=== PATIENT | male | born 1930 | race Caucasian/White ===

== ENCOUNTER → 2017-08-13 | Outpatient (CLI) | payer OTHER | LOC: BMCIMAGING 14:25 | PROVIDERS: ATTEND Family Medicine | DX: R60.9 Edema, unspecified (principal) ==

== ENCOUNTER 2017-09-23 17:25 | Inpatient (IN) | payer OTHER ==
--- NOTE | 2017-09-23 17:53 | EDPHY ---
HPI/HX/ROS/PE/MDM Narrative: CHIEF COMPLAINT: Bilateral leg edema HPI: This patient is an 87 year old male with history of congestive heart failure and dementia arriving at he request of his patient access director, Dr. Alegre, for evaluation of worsening lower extremity edema. Two months ago, the patient's daughter noted worsening leg swelling and discovered the patient was not taking his prescribed diuretic medications. He has had several appointments at the medical center and followed up with cardiology, but has not done well with his current outpatient management. A recent echocardiogram in August showed normal LV function. The patient presents today for admission for management of symptoms. REVIEW OF SYSTEMS: Aside from elements discussed in the HPI, a comprehensive 10-point review of systems was reviewed and is negative. PMH: Congestive heart failure, dementia, BPH, asthma SOCIAL HISTORY: Family at bedside. Lives in [place]. Retired. . Nonsmoker. PHYSICAL EXAM: General:Patient is alert, in no acute distress. ENT:Eyes are normal to inspection. ENT inspection normal. Neck: Normal inspection. Full range of motion. Respiratory:No respiratory distress. Breath sounds normal bilaterally. Cardiovascular: Regular rate and rhythm. Strong peripheral pulses. Normal cap refill. Abdomen:The abdomen is nontender to palpation. There are no peritoneal signs. There are normal bowel sounds. Back: Normal to inspection. No tenderness to palpation. Skin: Normal color. No rash. Warm and dry. Extremities: 3+ bilateral lower extremity edema with large amount of skin sloughing and flaking, mild weeping. Full range of motion. Neuro: Oriented x3. Normal motor function. Normal sensory function. ED Course: 87 y/o male with history of CHF presents for admission and diuresis at the request of his patient access director, Dr. Alegre. Exam reveals 3+ bilateral lower extremity edema with large amount of skin sloughing and flaking, mild weeping. Plan for EKG, chest x-ray, labs including CBC, BMP, troponin, BMP, liver. EKG was ordered and interpreted by myself. Please see [employer] system for official reading. Troponin and BNP negative. Chest x-ray shows cardiomegaly, no pneumonia. 19:[address] Cordero, hospitalist. He accepts admission for right heart failure and bilateral lower extremity edema. Plan to administer 20mg IV Lasix. MDM: This patient presents with longstanding, quite significant BLE edema, not responding to outpatient treatment and thought secondary to RH failure. His patient access director has requested admission for further workup and treatment. I see no signs of respiratory compromise, ACS, or DVT at this time. - Data Points Imaging: I viewed and interpreted images myself Laboratory Results: Laboratory Results 09/23/17 17:54 09/23/17 17:54 09/23/17 09/23/17 17:54 17:54 WBC 5.80 10^3/uL 10^3/uL (3.80-9.50) RBC 3.48 10^6/uL L 10^6/uL (4.40-6.38) Hgb 12.3 g/dL L g/dL (13.7-17.5) Hct 34.8 % L % (40.0-51.0) MCV 100.0 fL H fL (81.5-99.8) MCH 35.3 pg H pg (27.9-34.1) MCHC 35.3 g/dL g/dL (32.4-36.7) RDW 15.8 % H % (11.5-15.2) Plt Count 187 10^3/uL 10^3/uL (150-400) MPV 8.5 fL L fL (8.7-11.7) Neut % (Auto) 45.8 % % (39.3-74.2) Lymph % (Auto) 29.5 % % (15.0-45.0) [place] % (Auto) 15.0 % H % (4.5-13.0) Eos % (Auto) 8.6 % H % (0.6-7.6) Baso % (Auto) 0.9 % % (0.3-1.7) Nucleat RBC Rel Count 0.0 % % (0.0-0.2) Absolute Neuts (auto) 2.66 10^3/uL 10^3/uL (1.70-6.50) Absolute Lymphs (auto) 1.71 10^3/uL 10^3/uL (1.00-3.00) Absolute Monos (auto) 0.87 10^3/uL H 10^3/uL (0.30-0.80) Absolute Eos (auto) 0.50 10^3/uL H 10^3/uL (0.03-0.40) Absolute Basos (auto) 0.05 10^3/uL 10^3/uL (0.02-0.10) Absolute Nucleated RBC 0.00 10^3/uL 10^3/uL (0-0.01) Immature Gran % 0.2 % % (0.0-1.1) Immature Gran # 0.01 10^3/uL 10^3/uL (0.00-0.10) Sodium 142 mEq/L mEq/L (135-145) Potassium 5.2 mEq/L mEq/L (3.5-5.2) Chloride 105 mEq/L mEq/L (97-110) Carbon Dioxide 26 mEq/l mEq/l (22-31) Anion Gap 11 mEq/L mEq/L (8-16) BUN 32 mg/dL H mg/dL (7-23) Creatinine 0.8 mg/dL mg/dL (0.7-1.3) Estimated GFR > 60 Glucose 102 mg/dL H mg/dL (70-100) Calcium 9.4 mg/dL mg/dL (8.5-10.4) Total Bilirubin 0.4 mg/dL mg/dL (0.1-1.4) Conjugated Bilirubin 0.2 mg/dL mg/dL (0.0-0.5) Unconjugated Bilirubin 0.2 mg/dL mg/dL (0.0-1.1) AST 33 IU/L IU/L (17-59) ALT 44 IU/L IU/L (21-72) Alkaline Phosphatase 95 IU/L IU/L (38-126) Troponin I < 0.012 ng/mL ng/mL (0.000-0.034) NT-Pro-B Natriuret Pep 494 pg/mL H pg/mL (0-450) Total Protein 7.2 g/dL g/dL (6.3-8.2) Albumin 3.7 g/dL g/dL (3.5-5.0) Medications Given: Discontinued Medications Furosemide (Lasix Injection) 20 mg IVP EDNOW ONE Stop: 09/23/17 19:53 Last Admin: 09/23/17 20:03 Dose: Not Given General Time Seen by Provider: 09/23/17 17:46 Initial Vital Signs: Initial Vital Signs Temperature (C) 36.4 C 09/23/17 17:28 Heart Rate 74 09/23/17 17:28 Respiratory Rate 18 09/23/17 17:28 Blood Pressure 153/47 H 09/23/17 17:28 O2 Sat (%) 96 09/23/17 17:28 O2 Delivery Mode Nasal Cannula O2 (L/minute) 2 Allergies/Adverse Reactions: No Known Allergies Allergy (Unverified 09/23/17 17:27) Home Medications: Medication Instructions Recorded Folic Acid [Folic Acid 1 MG (*)] 1 mg PO DAILY 09/23/17 Furosemide [Lasix 20 MG (*)] 20 mg PO DAILY 09/23/17 Potassium Chloride [Klor-Con 10] 10 meq PO DAILY 09/23/17 Tamsulosin HCl [Flomax 0.4 MG (*)] 0.4 mg PO DAILY 09/23/17 Departure - Departure Disposition: [facility] Inpatient Acute Clinical Impression: RHF (right heart failure), Bilateral lower extremity edema Condition: Fair Report Scribed for: Thanh Greco Report Scribed by: Stephany Miranda Date of Report: 09/23/17 Time of Report: 17:48 Physician Review and Approval Statement: Portions of this note were transcribed by an ED scribe. I personally performed the history, physical exam, and medical decision making; and confirm the accuracy of the information in the transcribed note.
--- NOTE | 2017-09-23 17:59 | CPEKG ---
Heart Rate: 71 RR Interval: 845 P-R Interval: 184 QRSD Interval: 96 QT Interval: 400 QTC Interval: 435 P Brighton: 90 QRS Brighton: -54 T Wave [place]: 82 EKG Severity - ABNORMAL ECG - EKG Impression: SINUS RHYTHM EKG Impression: ATRIAL PREMATURE COMPLEX EKG Impression: LEFT ATRIAL ABNORMALITY EKG Impression: LEFT ANTERIOR FASCICULAR BLOCK EKG Impression: LEFT VENTRICULAR HYPERTROPHY Electronically Signed By: Calvin Guillaume 24-Sep-2017 12:37:57
[2017-09-23 18:23] LABS: PLATELET COUNT 187 10^3/uL (150-400)
[2017-09-23] MEDS ORDERED: FUROSEMIDE 20 MG/2 ML VIAL IVP ONE (19:52)
[2017-09-23] MEDS ORDERED: ONDANSETRON DISINTEGRATING 4 MG TAB PO PRN (20:05)
[2017-09-23] MEDS ORDERED: ACETAMINOPHEN 325 MG TAB PO PRN (20:05)
[2017-09-23] MEDS ORDERED: ONDANSETRON 4 MG/2 ML VIAL IVP PRN (20:05)
[2017-09-23] MEDS ORDERED: IOPAMIDOL (ISOVUE-300) 100 ML BTL ONE (20:08)
--- NOTE | 2017-09-23 21:06 | GHP ---
[f rep st] HISTORY AND PHYSICAL DATE OF ADMISSION: 09/23/2017 CHIEF COMPLAINT: Volume overload. HISTORY OF PRESENT ILLNESS: This is an 87-year-old male with a history of dementia who is accompanie d by his 2 sons and daughter in law, who presents after being sent in from Dr. Alegre's office for volu me overload. Apparently they 1st sought care with Dr. Alegre about 2 months ago. Echocardiogram was d one, which showed normal ejection fraction. He has been diuresed however not very successfully. He had gained 20 pounds when he 1st went to see Dr. Alegre, up to a maximum weight of 150 pounds, down to 139 pounds with diuresis. He was sent in by Dr. Alegre to the ED for admission for diuresis. He is co mplaining of no chest pain. His children feels that the swelling in his legs may be about the same, though the scale has gotten worse. He has no real pain on palpation with his legs. He actually says that it is quite soothing. He has been taking Lasix 20 mg daily. This started about 2 months ago. Prior to that, he had been on spironolactone, unclear dose and exactly when that was discontinued is also unclear. He is not complaining of any shortness of breath either. PAST MEDICAL/SURGICAL HISTORY: 1. Reported CHF, unclear. 2. Dementia. 3. BPH. 4. Asthma. MEDICATIONS: Please see medication reconciliation. ALLERGIES: No known drug allergies. SOCIAL HISTORY: He does not drink or smoke. He is . He lives with his . He is accompan ied by his kids. FAMILY HISTORY: Reviewed and noncontributory. REVIEW OF SYSTEMS: A 10-point review of systems is conducted and is negative except per HPI. PHYSICAL EXAM: VITAL SIGNS: Blood pressure 157/55, heart rate 72, respiration rate 22, saturating 1 00% on 2 L. Temperature 36.4. GENERAL: The patient is a very pleasant man who is resting comfortab ly, in no acute distress. HEENT: Shows him to be normocephalic, atraumatic. CARDIOVASCULAR: It is regular but there are occasional irregular beats. He has a 2/6 systolic murmur. PULMONARY: Shows him to be breathing comfortably. He is in no acute distress. ABDOMEN: Soft, nontender, nondistende d. SKIN: Shows no rash. : Shows no Alan. NEUROLOGIC: Shows him to be alert and oriented x3. He is slightly confused with short-term recall. PSYCHIATRIC: Shows normal mood and affect. EXTREM ITIES: Shows bilateral lower extremities. Both to be erythematous, edematous, nontender to palpatio n. Slightly warm and quite scaly. LABS: Hemoglobin is 12. Potassium is 5.2, BUN is 32, creatinine 0.8. Troponins negative. BNP is 4 94. DATA: 1. Chest x-ray, which I personally viewed and interpreted, shows expanded lungs. He has some increa sed pulmonary vasculature. He has cardiomegaly. 2. EKG, which I personally viewed and interpreted, shows wandering atrial pacemaker. He has T-wave inversions in leads V1, V2. 3. I discussed this with Dr. Greco. IMPRESSION AND PLAN: An 87-year-old man, admitted with volume overload. 1. Volume overload: Reportedly normal left ventricular function at [facility] last month. This may be rig ht-sided heart failure given long-standing asthma. I have written to obtain records. Also need to c onsider lower extremity thrombus as well as potential IVC compression given lack of any clear cardiac findings. We will order lower extremity ultrasound as well as abdominal CT scan with IV contrast. Since he will be getting IV contrast, I will hold off on diuresis tonight, though this will very like ly need to be restarted tomorrow after following up on his creatinine. Consider repeat echocardiogra m. 2. Dementia: Very poor short-term recall. Certainly will complicate his care. 3. History of benign prostatic hypertrophy: Flomax. 4. Asthma: Currently breathing comfortably, was on room air. Does not appear to need any directed treatment at this point. CODE STATUS: Full. VENOUS THROMBOEMBOLISM: Risk is high. I will give him Lovenox. /[id number]/MODL
[2017-09-24 05:36] LABS: PLATELET COUNT 155 10^3/uL (150-400)
[2017-09-24] MEDS: ENOXAPARIN 40 MG/0.4 ML SYR SC SCH (10:20)
[2017-09-24] MEDS: TAMSULOSIN HCL 0.4 MG CAP PO SCH (10:20)
[2017-09-24] MEDS ORDERED: PNEUMOC 13-VAL CONJ-DIP CRM/PF 0.5 ML SYR IM ONE ×2 (10:26→16:30)
--- NOTE | 2017-09-24 11:12 | PDMN ---
Medical Necessity Medical necessity: est los>2mn for volume overload, question of R sided failure r/t asthma; failed OP treatment; admit to r/o LE thrombus and IVC compression, likely diuresis pending f/u creat; comorbid dementia, asthma, advanced age; per order and H&P 09/23/17
[2017-09-24] MEDS ORDERED: PEG 3350/NA SULF,BICARB,CL/KCL (GAVILYTE-G) 4000 ML BTL PO ONE (15:30)
--- NOTE | 2017-09-24 15:37 | HOSPPROG ---
Hospitalist Progress Note Assessment/Plan: 87 yo M le edema LE edema: ct abd w extrinsic compression from obstipation golytely prep no dvt await echo from [facility] skin: I suspect he has retention hyperkeratosis wound care to see suspect would benefit from urea cream constipation: golyetly prep check tsh tremor: suspect parkinsonism referred to jet as outp proph: lmwh dispo: inpt Subjective: CT images w remarkable constipation (interp by me) Objective: Vital Signs Temp Pulse Resp BP Pulse Ox 36.3 C 71 19 134/48 H 99 09/24/17 11:33 09/24/17 11:33 09/24/17 11:33 09/24/17 11:33 09/24/17 11:33 Laboratory Results 09/24/17 05:30 09/24/17 05:30 09/23/17 09/24/17 09/25/17 05:59 05:59 05:59 Output Total 150 Balance -150 - Physical Exam Constitutional: no apparent distress, appears nourished Eyes: PERRL, anicteric sclera Ears, Nose, Mouth, Throat: moist mucous membranes, hearing normal Cardiovascular: regular rate and rhythym, no murmur, rub, or gallop Respiratory: no respiratory distress, no rales or rhonchi Gastrointestinal: normoactive bowel sounds, No tenderness, No guarding, No rebound Genitourinary: no bladder fullness Skin: warm, other (erythema nd retention hyperkeratosis) Musculoskeletal: full muscle strength Neurologic: AAOx3 Psychiatric: interacting appropriately ICD10 Worksheet Patient Problems: Problems Problem Status Onset Bilateral lower extremity edema Acute RHF (right heart failure) Acute
[2017-09-25] MEDS: TAMSULOSIN HCL 0.4 MG CAP PO SCH (08:18)
[2017-09-25] MEDS: ENOXAPARIN 40 MG/0.4 ML SYR SC SCH (08:19)
--- NOTE | 2017-09-25 15:03 | ASMTCMCOM ---
CM Note CM Note Notes: Patient admitted for LE edema. Has mild dementia at baseline. Lives with and daughter. Fermentation Engineer met with patient today, which he appreciated. PT suggests that home care might be beneficial, will await another eval before making referral. CM will follow. Date Signed: 09/25/2017 03:02 PM Electronically Signed By:Marlyn Duenas RN
--- NOTE | 2017-09-25 16:22 | HOSPPROG ---
Hospitalist Progress Note Assessment/Plan: 87 yo M le edema # Severe constipation- CT abd (personally reviewed and interpreted) severe obstipation - TSH 1.3 - cont golyetly PO - emena prn # LE edema: ct abd w extrinsic compression from obstipation-no dvt - golytely prep # skin: I suspect he has retention hyperkeratosis wound care to see suspect would benefit from urea cream # tremor: suspect parkinsonism referred to jet as outp # proph: lmwh # dispo: inpt > 2MN as pt remian acutely ill from obstipation Subjective: feeling a bit better - stooled this am Objective: Vital Signs Temp Pulse Resp BP Pulse Ox 36.6 C 92 18 148/51 H 91 L 09/25/17 12:00 09/25/17 12:00 09/25/17 12:00 09/25/17 12:00 09/25/17 12:00 Laboratory Results 09/24/17 05:30 09/25/17 03:58 09/24/17 09/25/17 09/26/17 05:59 05:59 05:59 Intake Total 1600 Output Total 150 650 450 Balance -150 950 -450 - Physical Exam Constitutional: no apparent distress Eyes: anicteric sclera Ears, Nose, Mouth, Throat: dry mucous membranes Cardiovascular: regular rate and rhythym Respiratory: no respiratory distress Gastrointestinal: normoactive bowel sounds Genitourinary: no bladder fullness Skin: warm Musculoskeletal: No asymmetric calves Neurologic: No AAOx3 Psychiatric: poor memory Lymph, Heme, Immunologic: no cervical LAD ICD10 Worksheet Patient Problems: Problems Problem Status Onset Bilateral lower extremity edema Acute RHF (right heart failure) Acute
[2017-09-26] MEDS: ENOXAPARIN 40 MG/0.4 ML SYR SC SCH (09:33)
[2017-09-26] MEDS: TAMSULOSIN HCL 0.4 MG CAP PO SCH (09:33)
--- NOTE | 2017-09-26 15:03 | ASMTCMCOM ---
CM Note CM Note Notes: Met with patient and his son Willie to discuss discharge planning. Per Willie, patient lives with his and their daughter Juliette. Juliette works nursing department chairperson and provides some care, and has been showing some signs of physical decline lately. Given this, Willie and his other siblings (brothers Raúl and Hugh) have been discussing getting caregiver support in the home. They plan to have a nursing education consultant come and assess home and needs and then hire help as recommended. Per Willie, Raúl is acting as MDPOA and family liason ([phone]). They are amenable to skilled home care in the meantime; I called [facility] and left a message requesting home PT/OT/RN. Current CM Discharge plan: home with home care Date Signed: 09/26/2017 03:02 PM Electronically Signed By:Marlyn Duenas RN
[2017-09-26] MEDS: FINASTERIDE 5 MG TAB PO SCH (15:23)
--- NOTE | 2017-09-26 16:36 | HOSPPROG ---
Hospitalist Progress Note Assessment/Plan: 87 yo M le edema # Severe constipation- CT abd (personally reviewed and interpreted) severe obstipation - TSH 1.3 Consistently stooling overnight- with watery stools this morning - discontinue "GoLYTELY - encourage normal p.o. intake # LE edema: ct abd w extrinsic compression from obstipation-no dvt - encourage ambulation # skin: I suspect he has retention hyperkeratosis wound care to see suspect would benefit from urea cream # tremor: suspect parkinsonism referred to jet as outp # proph: lmwh # dispo: inpt > 2MN as pt remain acutely ill from obstipation- anticipate disposition tomorrow I have discussed the case with the RN- patient's stools are quite watery appropriate to discontinue GoLYTELY Subjective: No abdominal pain Objective: Vital Signs Temp Pulse Resp BP Pulse Ox 36.6 C 75 16 138/77 H 93 09/26/17 12:00 09/26/17 12:00 09/26/17 12:00 09/26/17 12:00 09/26/17 12:00 Laboratory Results 09/24/17 05:30 09/25/17 03:58 09/25/17 09/26/17 09/27/17 05:59 05:59 05:59 Intake Total 1600 2000 400 Output Total 650 450 350 Balance 950 1550 50 - Physical Exam Constitutional: no apparent distress, cachectic Eyes: anicteric sclera Ears, Nose, Mouth, Throat: moist mucous membranes Cardiovascular: regular rate and rhythym Respiratory: no respiratory distress Gastrointestinal: normoactive bowel sounds Genitourinary: no bladder fullness Skin: warm Musculoskeletal: No asymmetric calves Neurologic: No AAOx3 Psychiatric: poor memory Lymph, Heme, Immunologic: no cervical LAD ICD10 Worksheet Patient Problems: Problems Problem Status Onset Bilateral lower extremity edema Acute RHF (right heart failure) Acute
[2017-09-27 04:29] VITALS: PULSE 80
[2017-09-27 08:05] VITALS: BP 142/48; RESP 18; TEMP 97.8; O2SAT 93
[2017-09-27] MEDS: ENOXAPARIN 40 MG/0.4 ML SYR SC SCH (08:50)
[2017-09-27] MEDS: FINASTERIDE 5 MG TAB PO SCH (08:50)
[2017-09-27] MEDS: TAMSULOSIN HCL 0.4 MG CAP PO SCH (08:50)
--- NOTE | 2017-09-27 09:27 | PDIAF ---
- Diagnosis Diagnosis: constipation Code Status: Full Code - Medication Management Discharge Medications: Medications to Continue on Transfer Folic Acid [Folic Acid 1 MG (*)] 1 mg PO DAILY 09/23/17 [Last Taken Unknown] Tamsulosin HCl [Flomax 0.4 MG (*)] 0.4 mg PO DAILY 09/23/17 [Last Taken Unknown] Docusate Sodium [Colace] 100 mg PO BID #60 capsule 09/27/17 [Last Taken Unknown] Finasteride [Proscar 5 MG (*)] 5 mg PO DAILY #30 tab 09/27/17 [Last Taken Unknown] Discharge Medications: Refer to the Discharge Home Medication list for PRN reason. - Orders Services needed: Home Care, Registered Nurse, Certified Fbi Profiler, Physical Therapy, Occupational Therapy Home Care Face to Face: I certify that this patient was under my care and that I had the required [id number] encounter meeting the encounter requirements on the discharge day. My findings support the fact that the patient is homebound as defined in Home Care Face to Face Continued: CMS Chapter 7 Medicare Benefits Manual 30.1.1 , The condition of the patient is such that there exists a normal inability to leave home and consequently, leaving home would require a considerable and taxing effort. Diet Recommendation: no restrictions on diet Diet Texture: Regular Texture Diet - Follow Up Care Current Providers and Referrals: NONE *PRIMARY CARE P,. [Unknown] - As per Instructions
--- NOTE | 2017-09-27 10:19 | PDIAF ---
- Diagnosis Diagnosis: constipation/urinary retention Code Status: Full Code - Medication Management Discharge Medications: Medications to Continue on Transfer Folic Acid [Folic Acid 1 MG (*)] 1 mg PO DAILY 09/23/17 [Last Taken Unknown] Tamsulosin HCl [Flomax 0.4 MG (*)] 0.4 mg PO DAILY 09/23/17 [Last Taken Unknown] Docusate Sodium [Colace] 100 mg PO BID #60 capsule 09/27/17 [Last Taken Unknown] Finasteride [Proscar 5 MG (*)] 5 mg PO DAILY #30 tab 09/27/17 [Last Taken Unknown] Discharge Medications: Refer to the Discharge Home Medication list for PRN reason. - Orders Services needed: Home Care, Registered Nurse, Certified Storage Wharfage Clerk, Physical Therapy, Occupational Therapy Home Care Face to Face: I certify that this patient was under my care and that I had the required [id number] encounter meeting the encounter requirements on the discharge day. My findings support the fact that the patient is homebound as defined in Home Care Face to Face Continued: CMS Chapter 7 Medicare Benefits Manual 30.1.1 , The condition of the patient is such that there exists a normal inability to leave home and consequently, leaving home would require a considerable and taxing effort. Diet Recommendation: no restrictions on diet Diet Texture: Regular Texture Diet Additional: Daily straight cath - Follow Up Care Current Providers and Referrals: NONE *PRIMARY CARE P,. [Unknown] - As per Instructions
--- NOTE | 2017-09-27 11:49 | ASDISCHSUM ---
Discharge Information Plan Status:Home with Home Health Medically Cleared to Leave: Discharge Date:09/27/2017 11:35 AM CM D/C Disposition:Home Health Service ADT D/C Disposition:Home, Routine, Self-Care Projected Discharge Date:09/27/2017 11:35 AM Transportation at D/C:Family Discharge Delay Reason: Follow-Up Date:09/27/2017 11:35 AM Discharge Slot: Final Diagnosis: Placement Information Patient Contact Information Contact Name:GREG Relationship:Rush Address: City:[place] Alternate Phone: [facility] Code:[place] Email: Financial Information Financial Class: Primary Plan Desc:MEDICARE INPATIENT Primary Plan Number:[id number] Secondary Plan Desc:[employer] Secondary Plan Number:[id number] Assessment Information [facility] CM Progress Note CM Note CM Note Notes: Patient admitted for LE edema. Has mild dementia at baseline. Lives with and daughter. met with patient today, which he appreciated. PT suggests that home care might be beneficial, will await another eval before making referral. CM will follow. Date Signed: 09/25/2017 03:02 PM Electronically Signed By:Marlyn Duenas RN [facility] CM Progress Note CM Note CM Note Notes: Met with patient and his son Willie to discuss discharge planning. Per Willie, patient lives with his and their daughter Juliette. Juliette works supervisor sewing department and provides some care, and has been showing some signs of physical decline lately. Given this, Willie and his other siblings (brothers Raúl and Hugh) have been discussing getting caregiver support in the home. They plan to have a eap consultant come and assess home and needs and then hire help as recommended. Per Willie Raúl is acting as MDPOA and family liason ([phone]). They are amenable to skilled home care in the meantime; I called [facility] and left a message requesting home PT/OT/RN. Current CM Discharge plan: home with home care Date Signed: 09/26/2017 03:02 PM Electronically Signed By:Marlyn Duenas RN Intervention Information Intervention Type:*Incorrect Registration Date of Service:09/24/2017 10:54 AM Patient Type:Observation Staff Member:CYNTHIA Murillo, El[place] Hours: Discipline: Severity: Comment: Intervention Type:*IM-Signed Date of Service:09/27/2017 10:05 AM Patient Type:Inpatient Staff Member:Maya Nelson Hours: Discipline: Severity: Comment:
--- NOTE | 2017-09-27 18:37 | GDS ---
[f rep st] DISCHARGE SUMMARY DISCHARGE DIAGNOSES: Include: 1. Severe constipation/obstipation. 2. Lower extremity edema secondary to inferior vena cava compression from constipation. 3. Severe retention hyperkeratosis. 4. Dementia. 5. Benign prostatic hypertrophy and urinary obstruction. 6. Resting tremor secondary to suspected Parkinson's. HISTORY OF PRESENT ILLNESS: This is an 87-year-old male who presented with complaints of lower extre mity edema and weakness. For details of patient's initial presentation, please see the History and P hysical dated 09/23/2017. CONSULTATIVE SERVICES: None. PROCEDURES: CT of the abdomen showed severe constipation with compression of the IVC. HOSPITAL COURSE BY ISSUE: 1. Severe constipation/obstipation. The patient was initiated on a GoLYTELY prep, where he was kept drinking GoLYTELY continuously through the day for the 1st 72 hours of his hospital stay. Patient ninfa ffreji passed several very large volume stools and ultimately developed very loose diarrhea. Awilda peña was taken off GoLYTELY, had normal oral intake and consistent daily stooling. The patient is di scharged on Audrey-Colace, recommendations for daily prunes, and evaluation by outpatient provider if n ot continuing to effectively stool on a daily basis. 2. Lower extremity edema secondary to obstipation. The patient's lower extremity edema did improve with relief of his severe constipation; it has not entirely resolved but we are discontinuing diureti cs to avoid any worsening constipation from dehydration in the outpatient setting. 3. Severe retention hyperkeratosis. Patient received aggressive skin care during this hospital stay with encouraged ongoing use of emollient lotion. 4. Dementia. Patient has excellent outpatient support. He is being discharged home with Home Healt [facility] and home physical therapy. 5. Acute urinary obstruction, presumed secondary to BPH. The patient was intermittently straight-ca theterized during his hospital stay. We expect that once daily straight catheterization should be ad equate for appropriate lab or decompression in the outpatient setting. We have continued the patient on his home dosing tamsulosin and additionally added a daily dose of Proscar, hopeful that the use o f both medications will ultimately resolve the patient's need for straight catheterizing. Home Healt h is being provided to assist with catheter support upon disposition. 6. Resting tremor. We do suspect, based on the patient's dementia, movement abnormalities and tremo rs, that the patient has underlying Parkinson's. We have provided contact information for outpatient neurologist, Dr. Carter, for evaluation and potential initiation of medication for Parkinson's. p lease. MEDICATIONS AT THE TIME OF DISPOSITION: Please reference the medication reconciliation form printed on 09/27/2017. PENDING STUDIES: At the time of this dictation, are none. FOLLOWUP APPOINTMENTS: Include: 1. With primary care provider for monitoring BPH and outpatient straight catheterization. 2. With Dr. Carter for outpatient evaluation of suspected diagnosis of parkinsonism. I spent greater than 30 minutes in the planning and coordination of this discharge. /[id number]/MODL
== END 2017-09-27 11:35 | disposition home or self-care (01) | DRG 392 ==
LOC: OBSVTOIN 19:28 → F2N 09-24 01:48 → F2W 09-24 11:25
PROVIDERS: ADMIT Student in an Organized Health Care Education/Training Program; ATTEND Hospitalist
DX: K59.00 Constipation, unspecified (principal); I87.1 Compression of vein; L85.9 Epidermal thickening, unspecified; G20 Parkinson's disease; F03.90 Unspecified dementia, unspecified severity, without behavioral disturbance, psychotic disturbance, mood disturbance, and anxiety; I50.9 Heart failure, unspecified; N40.1 Benign prostatic hyperplasia with lower urinary tract symptoms; N13.8 Other obstructive and reflux uropathy; J45.909 Unspecified asthma, uncomplicated
CPT/HCPCS: 97116-GP; 97161-GP; 97165-GO; G0009; G8978-GP-CJ; G8979-GP-CI; G8987-GO-CJ; G8988-GO-CJ; G8989-GO-CJ; J1650; J1940; Q9967

== ENCOUNTER 2017-10-05 10:46 | Inpatient (IN) | payer OTHER ==
[2017-10-05 11:06] LABS: PLATELET COUNT 150 10^3/uL (150-400)
[2017-10-05] MEDS ORDERED: NS 1,000 ML IV ONE ×2 (11:48→13:30)
--- NOTE | 2017-10-05 12:20 | CPEKG ---
Heart Rate: 72 RR Interval: 833 P-R Interval: 168 QRSD Interval: 100 QT Interval: 376 QTC Interval: 412 P Protection: 77 QRS Protection: -57 T Wave Protection: 91 EKG Severity - ABNORMAL ECG - EKG Impression: SINUS RHYTHM EKG Impression: MULTIFORM VENTRICULAR PREMATURE COMPLEXES EKG Impression: LEFT ANTERIOR FASCICULAR BLOCK Electronically Signed By: iLli Dela Cruz 05-Oct-2017 15:30:22
--- NOTE | 2017-10-05 13:18 | EDPHY ---
H & P Time Seen by Provider: 10/05/17 11:24 HPI/ROS: HPI Altered mental status, difficult behavior. 87-year-old male by ambulance from [facility]. This patient was recently admitted to our hospital. Please see below. Staff at [facility] reports that the patient has been acting more confused, was not responding to their questions as usual. He has apparently been very unhappy with being at [facility]. He has stop drinking and stop eating according to the staff at [facility]. He is bed ridden. There is no history of trauma. He responds yes and no to questions. ROS: Constitutional: No fever, no chills. As above. Eyes: No discharge. No changes in vision. ENT: No sore throat. No nasal congestion or rhinorrhea. Respiratory: No cough. No shortness of breath. Cardiac: No chest pain, no palpitations. Gastrointestinal: No abdominal pain, no vomiting, no diarrhea. Genitourinary: No hematuria. No dysuria or increased frequency with urination. Musculoskeletal: No back pain. No neck pain. No myalgias or arthralgias. Skin: No rashes. Neurological: No headache. No focal weakness or altered sensation. Past medical history: Dementia, BPH, asthma, chronic constipation, resting tremor secondary to suspected Parkinson's. Social history: No history of smoking. No alcohol. Resident of [facility] currently. Physical Exam: General Appearance: Sleepy but awake. Cachectic. This patient is responding to questions as above. Skin and mucous membranes dry. Eyes: Pupils equal and round 2-1 mm bilaterally, no pallor or injection. No lid edema, erythema or injection. ENT, Mouth: Mucous membranes are dry. The pharyngeal tissues are unremarkable. No edema or swelling. No asymmetry suggestive of abscess. No erythema or exudates. Respiratory: There are no retractions, lungs are clear to auscultation anteriorly with good air movement bilaterally. Cardiovascular: Regular rate and rhythm. No murmur appreciated. Gastrointestinal: Abdomen is soft and nontender, no masses, bowel sounds normal. No focal tenderness at McBurney's point. No Bai sign. Neurological: Motor sensory function is grossly intact. Other than noted above this patient's neurologic status is baseline according to staff at [facility]. Skin: Warm and dry, diffuse erythroderma. Musculoskeletal: Neck is supple and nontender. Extremities are symmetrical. 1 to 2+ symmetrical pitting edema in the bilateral lower extremities with associated stasis dermatitis. Psychiatric: No agitation. Database: EKG: EKG time is 12:17 p.m.; EKG shows a narrow complex normal sinus rhythm with a ventricular rate of 72. PVCs noted. Left anterior fascicular block. The OH, QRS, QT intervals are within normal limits. There are no ST-T wave changes indicative of ischemic or injury pattern. No evidence of right heart strain. Interpreted by me. Imaging: CT scan of head without contrast: Age-related changes only. Results were discussed with staff radiologist. Procedures: Emergency department course: Vital signs reviewed. Patient is afebrile. Patient started on IV normal saline with 1 L to be given over the next hour. EKG obtained and reviewed by myself. He will be sent for CT imaging of his brain. 1:30 p.m., patient re-evaluated. I have started a 2nd L of IV normal saline for treatment of severe hypernatremia and dehydration. Neurologic status remains unchanged from prior. 1:35 p.m., spoke with on-call hospitalist. Patient accepted for admission to Dr. Ramos. Patient admitted to the step-down unit in guarded condition. His vital signs have remained stable throughout his emergency department course. Dr. Ramos evaluated the patient in the emergency department. His mental status did improve somewhat and he was asking for coffee prior to being sent up to the floor. He received a total of 2 L of IV normal saline for treatment of hypernatremia and dehydration. Differential Diagnosis: The differential diagnosis on this patient includes but is not limited to failure to thrive, severe hypernatremia, renal insufficiency, dehydration. This represents a partial list of diagnoses considered. These considerations are based on history, physical exam, past history, reassessment and diagnostic testing. Smoking Status: Never smoked Constitutional: Initial Vital Signs Temperature (C) 37 C 10/05/17 10:55 Heart Rate 79 10/05/17 10:55 Respiratory Rate 16 10/05/17 10:55 Blood Pressure 139/50 H 10/05/17 10:55 O2 Sat (%) 100 10/05/17 10:55 O2 Delivery Mode Room Air Allergies/Adverse Reactions: No Known Allergies Allergy (Unverified 09/23/17 17:27) Home Medications: Medication Instructions Recorded Folic Acid [Folic Acid 1 MG (*)] 1 mg PO DAILY 09/23/17 Tamsulosin HCl [Flomax 0.4 MG (*)] 0.4 mg PO DAILY 09/23/17 Docusate Sodium [Colace] 100 mg PO BID #60 capsule 09/27/17 Finasteride [Proscar 5 MG (*)] 5 mg PO DAILY #30 tab 09/27/17 Magnesium Hydroxide [Milk of 30 ml PO DAILY PRN 10/05/17 Magnesia] Medical Decision Making - Data Points Laboratory Results: Laboratory Results 10/05/17 10:40 10/05/17 10:40 Medications Given: Heparin Sodium (Porcine) (Heparin Sc Injection) 5,000 unit SC Q8 LACY Stop: 04/03/18 13:59 Last Admin: 10/06/17 15:59 Dose: 5,000 unit Dextrose (D5w) 1,000 mls @ 100 mls/hr IV CONT LACY Stop: 04/04/18 08:14 Last Admin: 10/06/17 08:27 Dose: 1,000 mls Discontinued Medications Sodium Chloride (Ns) 1,000 mls @ 0 mls/hr IV EDNOW ONE; Wide Open PRN Reason: Protocol Stop: 10/05/17 11:49 Last Admin: 10/05/17 12:07 Dose: 1,000 mls Sodium Chloride (Ns) 1,000 mls @ 0 mls/hr IV EDNOW ONE; Wide Open PRN Reason: Protocol Stop: 10/05/17 13:31 Last Admin: 10/05/17 13:33 Dose: 1,000 mls Sodium Chloride (1/2 Ns) 1,000 mls @ 100 mls/hr IV CONT LACY Stop: 04/03/18 13:59 Last Admin: 10/05/17 15:31 Dose: 1,000 mls Sodium Chloride (1/2 Ns) 1,000 mls @ 75 mls/hr IV CONT LACY Stop: 04/03/18 17:29 Last Admin: 10/06/17 04:54 Dose: 1,000 mls Potassium Chloride (Potassium Cl 20 Meq (Premix)) 100 mls @ 50 mls/hr IV ONCE ONE Stop: 10/06/17 13:59 Last Admin: 10/06/17 12:03 Dose: 100 mls Departure - Departure Disposition: [facility] Inpatient Acute Clinical Impression: Hypernatremia, Dehydration, Renal insufficiency, Leukocytosis Condition: Critical
[2017-10-05] MEDS ORDERED: ACETAMINOPHEN 650 MG SUPP PR PRN (13:55)
[2017-10-05] MEDS ORDERED: ONDANSETRON 4 MG/2 ML VIAL IVP PRN (13:55)
[2017-10-05] MEDS ORDERED: 1/2 NS 1,000 ML IV SCH ×2 (14:00→17:30)
[2017-10-05 14:17] LABS: CREATINE KINASE 915 IU/L (0-224)
[2017-10-05] MEDS ORDERED: HEPARIN 10,000 UNIT/10 ML MDV (1,000 UNIT/ML) ONE (15:12)
[2017-10-05] MEDS: HEPARIN 5,000 UNIT/0.5 ML SYR SC SCH ×2 (15:30→21:15)
--- NOTE | 2017-10-05 17:40 | PDGENHP ---
History and Physical - Chief Complaint Acute encephalopathy - History of Present Illness Primary store shopper: Dr. Ney Alegre Primary neurologist: Dr. Eulalio Carter HPI: 87-year-old male presenting with acute encephalopathy characterized as confusion, unresponsiveness with associated generalized fatigue, nonproductive cough, poor oral intake of liquids with onset of symptoms approximately 5 days ago and progressive worsening thereafter. The patient was discharged from the hospital 7 days ago, he was reportedly conversant, fully oriented, but experiencing significant weakness at home, leading his home health care agency to seek admission to [facility] rehab. The patient was admitted there approximately 6 days ago, and then 5 days prior to this presentation, he began experiencing after mentioned symptoms. This is occurred in the context of the patient drinking almost no water on a daily basis, but maintaining solid food intake. He has otherwise been taking all of his home medications as prescribed on discharge a week ago. History Information - Allergies/Home Medication List Allergies/Adverse Reactions: No Known Allergies Allergy (Unverified 09/23/17 17:27) Home Medications: Folic Acid [Folic Acid 1 MG (*)] 1 mg PO DAILY 09/23/17 [Last Taken Unknown] Tamsulosin HCl [Flomax 0.4 MG (*)] 0.4 mg PO DAILY 09/23/17 [Last Taken Unknown] Magnesium Hydroxide [Milk of Magnesia] 30 ml PO DAILY PRN 10/05/17 [Last Taken Unknown] I have personally reviewed and updated: family history, medical history, social history, surgical history - Past Medical History Additional medical history: BPH with obstruction, requiring straight catheterization. Resting tremor, possible Parkinson's. Chronic dermatitis. Mild to moderate dementia. Chronic diastolic congestive heart failure. Asthma. Chronic constipation - Surgical History Reports: no pertinent surgical hx - Family History Additional family history: No recent sick family contacts - Social History Smoking Status: Never smoked Alcohol Use: None Drug Use: None Additional social history: Previously residing in his own home with his , admitted to [facility] 6 days prior Review of Systems Review of Systems: ROS: 10pt was reviewed & negative except for what was stated in HPI & below Constitutional: Reports: weakness Neurological: Reports: other (Confusion, unresponsiveness) Physical Exam Physical Exam: Temp Pulse Resp BP Pulse Ox 36.9 C 74 18 108/51 L 100 10/05/17 16:00 10/05/17 16:00 10/05/17 16:00 10/05/17 16:00 10/05/17 16:00 O2 (L/minute) 2 Constitutional: chronically ill appearing, uncomfortable, unkempt, cachectic Eyes: anicteric sclera, EOMI Ears, Nose, Mouth, Throat: dry mucous membranes Cardiovascular: systolic murmur (1/6 at the sternum, distant heart sounds), edema (1+ bilateral lower extremity), No irregularly irregular, No tachycardia Respiratory: no respiratory distress, no rales or rhonchi, clear to auscultation , No respiratory distress Gastrointestinal: other (Scaphoid abdomen), No normoactive bowel sounds ( Hypoactive bowel sounds), No tenderness, No guarding, No distension Skin: other (Diffuse desquamation, hyperkeratosis on the scalp, flaking of skin bilateral lower extremities, blanchable) Neurologic: other (Alert awake oriented x1 to person only, patient gripping bilateral bed rails comma motor strength 4/5 bilateral lower extremities), No facial droop Psychiatric: not anxious, encephalopathic, poor insight, poor memory, other ( Patient able to follow some 1 step commands, and able to answer some yes or no questions), No agitated Lab Data & Imaging Review 10/05/17 10:40 10/05/17 16:44 WBC 14.71 10^3/uL (3.80-9.50) H 10/05/17 10:40 RBC 3.87 10^6/uL (4.40-6.38) L 10/05/17 10:40 Hgb 13.3 g/dL (13.7-17.5) L 10/05/17 10:40 Hct 41.9 % (40.0-51.0) 10/05/17 10:40 MCV 108.3 fL (81.5-99.8) H 10/05/17 10:40 MCH 34.4 pg (27.9-34.1) H 10/05/17 10:40 MCHC 31.7 g/dL (32.4-36.7) L 10/05/17 10:40 RDW 17.6 % (11.5-15.2) H 10/05/17 10:40 Plt Count 150 10^3/uL (150-400) 10/05/17 10:40 MPV 9.4 fL (8.7-11.7) 10/05/17 10:40 Neut % (Auto) 69.6 % (39.3-74.2) 10/05/17 10:40 Lymph % (Auto) 24.1 % (15.0-45.0) 10/05/17 10:40 Sterling % (Auto) 4.9 % (4.5-13.0) 10/05/17 10:40 Eos % (Auto) 0.3 % (0.6-7.6) L 10/05/17 10:40 Baso % (Auto) 0.6 % (0.3-1.7) 10/05/17 10:40 Nucleat RBC Rel Count 0.4 % (0.0-0.2) H 10/05/17 10:40 Absolute Neuts (auto) 10.25 10^3/uL (1.70-6.50) H 10/05/17 10:40 Absolute Lymphs (auto) 3.54 10^3/uL (1.00-3.00) H 10/05/17 10:40 Absolute Monos (auto) 0.72 10^3/uL (0.30-0.80) 10/05/17 10:40 Absolute Eos (auto) 0.04 10^3/uL (0.03-0.40) 10/05/17 10:40 Absolute Basos (auto) 0.09 10^3/uL (0.02-0.10) 10/05/17 10:40 Absolute Nucleated RBC 0.06 10^3/uL (0-0.01) H 10/05/17 10:40 Immature Gran % 0.5 % (0.0-1.1) 10/05/17 10:40 Immature Gran # 0.07 10^3/uL (0.00-0.10) 10/05/17 10:40 Sodium 186 mEq/L (135-145) H* 10/05/17 16:44 Potassium 3.7 mEq/L (3.5-5.2) 10/05/17 16:44 Chloride 144 mEq/L (97-110) H 10/05/17 16:44 Carbon Dioxide 28 mEq/l (22-31) 10/05/17 16:44 Anion Gap 14 mEq/L (8-16) 10/05/17 16:44 BUN 61 mg/dL (7-23) H 10/05/17 16:44 Creatinine 1.6 mg/dL (0.7-1.3) H 10/05/17 16:44 Estimated GFR 41 10/05/17 16:44 Glucose 115 mg/dL (70-100) H 10/05/17 16:44 Serum Osmolality 401 mosmo/kg (280-297) H 10/05/17 14:45 Calcium 8.9 mg/dL (8.5-10.4) 10/05/17 16:44 Total Bilirubin 0.6 mg/dL (0.1-1.4) 10/05/17 14:40 AST 80 IU/L (17-59) H 10/05/17 14:40 ALT 49 IU/L (21-72) 10/05/17 14:40 Alkaline Phosphatase 99 IU/L (38-126) 10/05/17 14:40 Creatine Kinase 915 IU/L (0-224) H 10/05/17 10:40 CK-MB (CK-2) Fraction 9.68 ng/mL (0.00-3.19) H 10/05/17 10:40 CK-MB (CK-2) % 1.1 % (0.0-4.0) 10/05/17 10:40 Creatine Kinase Interp NEGATIVE (NEGATIVE) 10/05/17 10:40 Total Protein 6.1 g/dL (6.3-8.2) L 10/05/17 14:40 Albumin 3.0 g/dL (3.5-5.0) L 10/05/17 14:40 TSH 1.760 uIU/mL (0.465-4.680) 10/05/17 10:40 Visualized and Interpreted Chest x-ray results: Yes Chest X-Ray results: no infiltrate Visualized and Interpreted EKG results: Yes EKG Interpretation: Positive for: other (Left anterior fascicular block, PVC) Assessment & Plan Assessment: 87-year-old male presenting with acute encephalopathy in the setting of acute severe hyponatremia, acute kidney injury Plan: 1. Acute encephalopathy. Evidenced by global brain dysfunction characterized as confusion, unresponsiveness, disorientation, all of which is an acute change from the patient's baseline which is normally oriented x3, conversant, most likely secondary to the metabolic effects of hyponatremia and acute kidney injury -Unclear whether the patient had any other toxic effects of infection which resulted in poor oral intake prior to developing his hyponatremia, will get respiratory viral panel, blood cultures given his leukocytosis -continue supportive care, make NPO until CUSTODY ASSISTANT eval 2. Hypernatremia. Acute, severe, resulting in above, secondary to poor free water intake over the past week, his serum sodium level is 145 ten days ago -discussed with Dr. Kurtis Castellanos, patient will require q2h sodium levels, PICC line, dilute fluid -continue monitor on telemetry -get urine out some, serum Osmo, urine sodium, urine creatinine, urinalysis -patient is critically on high risk of -will allow oral free water intake after patient has CUSTODY ASSISTANT eval 3. Acute kidney injury. Baseline creatinine less than 1, most likely secondary to hypovolemia in the setting of poor oral intake over the past week -continue IV fluids as above, the patient did receive 2 L normal saline in the emergency department -continue monitor strict I&Os, daily weights, urine output 4. BPH. History of obstruction with chronic straight catheterizations, place Alan catheter to monitor strict I&Os, once patient able to tolerate oral intake , will reinitiate Flomax and Proscar 5. Chronic diastolic congestive heart failure. No evidence of acute exacerbation on chest x-ray, patient does have chronic bilateral lower extremity edema -patient has not recently been on any diuretics -continue monitor volume status 6. Constipation. Chronic, abdominal x-ray demonstrating dilated loops of bowel , stable from previous 1, will initiate bowel regimen once patient able to tolerate oral intake -reviewed outside records including 09/27/[address] APOLINAR Dumont, she reports patient suffered from severe constipation required GoLYTELY in order to alleviate Diet. NPO until CUSTODY ASSISTANT eval Prophylaxis. High risk patient, heparin subcu Code. Do not resuscitate, discussed at great length with the patient's son Raúl who is the joint MD POA with son Hugh, Raúl believes that the patient would not want to suffer after experiencing CPR or intubation, and would consequently want to be a do not resuscitate, with standing that the patient would want to receive aggressive care prior to experiencing a code situation Disposition. Anticipated discharge uncertain, anticipated length stay greater than 48 hr for reasonable medical necessity warranting inpatient hospitalization for severe hypernatremia. 75 min of critical care time spent with the patient, at bedside, coordinating with the patient's son Raúl, coordinating with the emergency department physician Dr. Lili Dela Cruz, addressing the issues outlined above, specifically the acute encephalopathy and hyponatremia which rendered the patient critically ill with high risk of mortality.
--- NOTE | 2017-10-05 20:05 | ASMTCMCOM ---
CM Note CM Note Notes: Patient brought into ED from [facility] for AMS, decreased mentation, decreased intake, and concerns for pressure ulcers. Patient admitted for acute severe hypernatremia, encephelopathy HALIE. Patient had been discharged home from [facility] on 09/27/17 with [facility] but was unsuccessful and so patient admitted to [facility]. Spoke with Berhane at [facility] and updated on patient's admission; she will call patient's son Raúl and see if they want to pay to hold his bed there. Spoke with Raúl (c:[phone],h:[phone]) and he says he will come to the ED and that his younger brother Thanh ([phone]) is on his way to the ED. Raúl says another brother, Hugh ([phone]) also lives in the nearby area. Raúl and Hugh are joint MDPOAs for the patient. Per chart review, pt's code status changed to DNR after discussion with Raúl and Hugh. Anticipate a need for discussion on palliative care or even hospice and eventually another SNF or LTC placement. CM to follow. Date Signed: 10/05/2017 08:04 PM Electronically Signed By:Cherie Talamantes RN
--- NOTE | 2017-10-06 02:25 | GCON ---
[f rep st] CONSULTATION DATE OF CONSULTATION: 10/05/2017 REASON FOR CONSULTATION: Evaluation and management of hypernatremia and acute kidney injury. HISTORY OF PRESENT ILLNESS: The patient is an 87-year-old gentleman with no known prior history of kidney issues. In fact, he was recently admitted to [facility] on 09/23/2017, discharged 09/25/2017. He was admitted for lower extremity edema, which was likely due to obstipation, which was severe, compressing his inferior vena cava with diminished venous return leading to peripheral edema. By 09/25/2017, he had taken GoLYTELY and relieved his obstipation issues. At that time, his serum sodium was 145, potassium 4.2, chloride 110, CO2 28, BUN 19, creatinine 0.8, glucose 83. His calcium was 8.2. The patient resides at the [facility] with his . He does not much like the [facility], and so he apparently stopped eating and drinking several days ago. Over the course of the last several days he has noted increased lethargy and fatigue. He was brought to the Emergency Department at [facility] earlier this morning. His serum sodium at that time was measured to be 190, up from 145 on September 25. His serum creatinine was 2.1 up from 0.8, and his CO2 was 33 up from 28. We have been asked to see him for his hypernatremia. Apart from not eating and drinking much. Mr. Yan has no complaints. He has not been having fevers, chills, nausea, vomiting, abdominal pain, diarrhea, constipation, melena, hematochezia, blurry vision, double vision, headache, orthopnea, paroxysmal nocturnal dyspnea, palpitations, or syncope. He has had worsening weakness and fatigue. Mr. ragsdale answers all of my questions. PAST MEDICAL HISTORY: Significant for: 1. Congestive heart failure with a normal ejection fraction. 2. Dementia. 3. Benign prostate hypertrophy. 4. Asthma. 5. Obstipation with IVC compression causing lower extremity edema due to decreased venous return. ALLERGIES: None. MEDICATIONS: Include: 1. Tylenol. 2. Zofran 4 mg every 4 hours. 3. Half-normal saline at 100 cc/hour. 4. Heparin subcutaneously 5000 units every 8 hours. 5. Tamsulosin 0.4 mg daily. FAMILY HISTORY: Negative for kidney disease, diabetes, or hypertension. SOCIAL HISTORY: He is originally from [place], but he moved here about 50 years ago after getting due to his asthma. He has 4 children. He does not use tobacco, alcohol, IV or recreational drugs. He lives at the [facility] and stopped eating and drinking several days ago. REVIEW OF SYSTEMS: A complete 12-point review of systems was performed with the pertinent positives and negatives as per the previous sections. PHYSICAL EXAMINATION: VITAL SIGNS: Blood pressure is 151/66, pulse 68, respirations 16, temperature 37, weight 70.3 kg. His rhythm is sinus with occasional PVC. GENERAL: He is an elderly, cachectic, and ill appearing. HEENT pupils are reactive to light. Extraocular movements are intact. Mucous membranes are dry. NECK: No lymphadenopathy, thyromegaly, JVD. He does have bruit versus referred murmur. HEART: Regular. Grade 2/6 systolic murmur, grade 1/6 diastolic murmur. No rub. No S3. LUNGS: No rhonchi, rales, or wheezes. ABDOMEN: Bowel sounds are positive. Firm, thin. I can appreciate no organomegaly or bruits. I cannot palpate his bladder. EXTREMITIES: +1 edema in his lower extremities bilaterally. SKIN: Scaly changes likely due to immobility. LYMPH: No palpable lymphadenopathy or lymphedema. MUSCULOSKELETAL : No effusions or tenderness. LABORATORY: Serum sodium is 190, potassium 4.1, chloride 141, CO2 33, BUN 63, creatinine 2.1, glucose 137, calcium 9.7. CK 915. Albumin 3. TSH of 1.760. Blood cultures x2 are pending. WBC 14.7, hemoglobin 13.3, hematocrit 41.9, platelet count 150,000. Serum osmolality 401. AST is 49, ALT 99, total protein of 6.1. IMPRESSION: 1. Hypernatremia, serum sodium measured at 190, repeat on that same blood sample was 185, the patient is alert and talking. I suspect this serum sodium is wildly inaccurate. We will repeat another serum sodium. I also believe that his serum osmolality is very inaccurate at 401. 2. Acute kidney injury, patient had a recent CT scan with intravenous contrast , plus he has not been eating or drinking much over the course of the past several days, which may be contributing as well. 3. Metabolic alkalosis, probably contraction. 4. Urinary retention in the past on tamsulosin. RECOMMENDATIONS: 1. For right now, he is on IV fluids, half-normal saline at 100 cc/hour. I think it is reasonable to continue with that for now until we have a repeat sodium level. 2. I would place a Alan catheter. 3. No urgent dialysis needs. 4. Very frequent sodium checks. 5. Follow electrolytes, volume status, and renal function closely. Thank you for allowing me to participate in the care of your patient. If there are any questions, please do not hesitate to contact me. I will be following along with you. /[id number]/MODL MTDD
[2017-10-06] MEDS: HEPARIN 5,000 UNIT/0.5 ML SYR SC SCH ×3 (04:54→22:13)
[2017-10-06] MEDS ORDERED: 1/2 NS 1,000 ML IV SCH (06:30)
[2017-10-06 06:54] LABS: PLATELET COUNT 107 10^3/uL (150-400)
--- NOTE | 2017-10-06 08:22 | SOAPPROG ---
SOAP Progress Note Assessment/Plan: Assessment: HALIE better with IVF, baseline creat about 0.8 hypernatremia, free water deficit about 12 liters, total body water of about 34 liters, will replace slowly over 4-5 days hypermagnesemia alkalosis, contraction significant sacral wound Plan: change to D5W today at 100cc/hr replete free water deficit over 4-5 days (10 meq/day) follow magnesium follow lytes volume and renal function 10/06/17 08:18 10/06/17 08:28 Objective: Vital Signs Temp Pulse Resp BP Pulse Ox 36.3 C 73 22 H 135/97 H 98 10/06/17 08:00 10/06/17 08:00 10/06/17 08:00 10/06/17 08:00 10/06/17 08:00 Microbiology 10/05/17 15:04 Respiratory Panel (PCR) - Final Nasal, Sinus - [place] Viral Transport No Organism Detected Laboratory Results 10/06/17 06:40 10/06/17 06:40 10/05/17 10/06/17 10/07/17 05:59 05:59 05:59 Intake Total 2815 Output Total 1050 Balance 1765 Physical Exam - Physical Exam General Appearance: cachetic, other (chronically ill appearing) Respiratory: other (no rh or wh) Cardiac/Chest: regular rate, rhythm, diastolic murmur, systolic murmur Abdomen: normal bowel sounds, non-tender, soft Male Genitalia: other (ortega cath in place) Skin: other (very large sacral ulcer and bilateral heel pressure sores) Neuro/Psych: alert (cooperative) ICD10 Worksheet Patient Problems: Problems Problem Status Onset Dehydration Acute Hypernatremia Acute Leukocytosis Acute Renal insufficiency Acute Bilateral lower extremity edema Acute RHF (right heart failure) Acute
[2017-10-06] MEDS: D5W 1,000 ML IV SCH (08:27)
[2017-10-06] MEDS ORDERED: POTASSIUM Cl (KCl) 100 ML IV ONE (12:00)
--- NOTE | 2017-10-06 12:22 | PDMN ---
Medical Necessity Medical necessity: Pt meets IP criteria per MD; est los >2 mn for eval/tx of acute encephalopathy in the setting of severe hypernatremia, acute kidney injury & coccyx pressure injury; pt is critically ill & at high risk of , admit to SDU for further workup/monitoring, IVFs, supportive care, Wound Care consult & therapies; hx BPH w/obstruction requiring straight cath, possible Parkinson's, dementia, diastolic CHF, asthma & chronic constipation; per H&P & order 10/05/17
--- NOTE | 2017-10-06 13:22 | WOCRNPDOC ---
FELIPE Advanced Assessment Note - Skin Integrity Problem, Advanced Assess Sacrum Pressure Injury Dressing Type: Allevyn Life Dressing Description: Intact, Shadowed Exudate Amount: Minimal Exudate Color: Reddish/Yellow Exudate Characteristic(s): Serosanguinous Integumentary Issue Intervention: Dressing Changed Audrey Wound Tissue: Blanching, Erythema Wound Bed Color: Black, Red Wound Bed Constitution: Red/[place] - Non Granular Tissue Site Odor: None Site Measurement - Head-to-Toe Length X Width X Depth (cm): 5.5x8.6xDTI Pressure Injury Stage: Deep Tissue Injury (DTI) Pressure Injury Present on Admit: Yes (MD aware) Skin Integrity Problem Comment: Patient rolled to right side with assist from CYNTHIA Agosto. Obvious darkened purple area to patient's sacrum indicating a DTI. Currently, the distal portion of discoloration is some of the area of injury is open but I suspect the entire darkened area will open in the coming days. Wound care will continue to round on this patient to monitor this evolving wound. Coccyx Pressure Injury Dressing Type: Open to Air Audrey Wound Tissue: Blanching, Erythema Wound Bed Color: Black, Red Wound Bed Constitution: Red/[place] - Non Granular Tissue Site Measurement - Head-to-Toe Length X Width X Depth (cm): 1.2x1.4xDTI Pressure Injury Stage: Deep Tissue Injury (DTI) Pressure Injury Present on Admit: Yes Skin Integrity Problem Comment: Obvious darkened purple area to patient's coccyx indicating a DTI. Currently, there is a small open area but I suspect the entire wound will open in the coming days. Wound care will continue to round on this patient to monitor this evolving wound. Left Buttock Pressure Injury Dressing Type: Open to Air Wound Bed Color: [place] Wound Bed Constitution: Red/[place] - Non Granular Tissue Site Measurement - Head-to-Toe Length X Width X Depth (cm): 7x1.4x0.2 Pressure Injury Stage: Deep Tissue Injury (DTI) Pressure Injury Present on Admit: Yes Skin Integrity Problem Comment: Patient rolled to right side with assist from CYNTHIA Agosto. Obvious darkened purple area to patient's coccyx indicating a DTI. Currently, the distal portion of discoloration is some of the area of injury is open but I suspect the entire darkened area will open in the coming days. Wound care will continue to round on this patient to monitor this evolving wound. Right Heel Pressure Injury Dressing Type: Open to Air Exudate Amount: None Audrey Wound Tissue: Intact Wound Bed Color: Black Wound Edges: Well Defined Site Measurement - Head-to-Toe Length X Width X Depth (cm): [id number] Pressure Injury Stage: Deep Tissue Injury (DTI) Pressure Injury Present on Admit: Yes Skin Integrity Problem Comment: Patient with blackened heels bilaterally. Heel boots placed. Left Heel Pressure Injury Dressing Type: Open to Air Exudate Amount: None Wound Bed Color: Black Wound Edges: Well Defined Site Measurement - Head-to-Toe Length X Width X Depth (cm): 3x2.3xeschar Pressure Injury Stage: Deep Tissue Injury (DTI) Pressure Injury Present on Admit: Yes Skin Integrity Problem Comment: Patient with blackened heels bilaterally. Heel boots placed. Left Anterior Ankle Pressure Injury Dressing Type: Open to Air Audrey Wound Tissue: Blanching Wound Bed Color: Purple, Red Wound Edges: Well Defined Site Measurement - Head-to-Toe Length X Width X Depth (cm): 3d6dOYS Pressure Injury Stage: Deep Tissue Injury (DTI) Pressure Injury Present on Admit: Yes Skin Integrity Problem Comment: Wound of unknown etiology, presents as a DTI with darkened purple and red throughout. Skin intact at this point but wound care will continue to monitor as this wound evolves.
--- NOTE | 2017-10-06 15:13 | GCON ---
[f rep st] CONSULTATION CRITICAL CARE CONSULTATION. DATE OF CONSULTATION: 10/06/2017 HISTORY OF PRESENT ILLNESS: This patient is an 87-year-old male with dementia, possibly Parkinson, w ho was hospitalized at [facility] on 09/23/2017 with lower extremity edema. This had been going on for abou t a month prior to that admission, and he was treated with diuretics off and on and eventually came t o the emergency room. He had a CT scan at that time, looking for etiology because his echo was thoug ht to be normal. This showed infrahepatic inferior vena cava collapse, thought to be due to severe c onstipation and bowel dilatation. He was given GoLYTELY, followed by some Colace which seemed to wor k well, but his edema did not get terribly better. His diuretics were held, however, at that time. He was discharged to [facility] on the 09/27/2017, and lasted about a week and returned today be cause of obtundation. He was found to have a sodium of 190 and a creatinine of 2.1 which is well abo ve baseline. Renal has been following. He has been treating his fluids, and his sodium has been com ing down some. PAST MEDICAL HISTORY: Includes: 1. Dementia. 2. Parkinson's. 3. Tremor. 4. Asthma. 5. Benign prostatic hypertrophy. 6. Chronic constipation. SURGICAL HISTORY: Unknown. SOCIAL HISTORY: He is a nonsmoker. No alcohol or IV drug use. FAMILY HISTORY: Noncontributory. MEDICATIONS: At this time include only D5W, heparin, and Zofran. PHYSICAL EXAM: VITAL SIGNS: He had a blood pressure 135/97, heart rate of 73, respirations 20, oxyg en saturation 98% on 3 L. GENERAL: He was thin and cachectic and did answer questions but not yovany niki appropriately. HEENT: Pupils equally round and reactive to light. Nonicteric and noninjected. Mucous membranes were moist at this point, without erythema or exudate. NECK: Supple without adeno dov or jugular vein distention. LUNGS: Breath sounds were clear to auscultation bilaterally, with out wheezes, rubs, or rales. HEART: Regular rate and rhythm, without obvious murmurs, rubs, or gall ops. ABDOMEN: Soft, nontender, nondistended without hepatosplenomegaly. EXTREMITIES: 2+ edema wit h flaking skin on his bilateral feet but palpable pulses. NEUROLOGICAL: Nonfocal at this time. I d id not detect muscle rigidity in his upper extremities. LABORATORY DATA: Includes an initial sodium of 190, with potassium 4.1, chloride 141, bicarb 33, BUN 63, creatinine 2.1. LFTs were normal, save for an AST of 80, CK of 915, and a serum osmolality of 4 00, with a urine osmolality of 720. ASSESSMENT AND PLAN: 1. Severe hypernatremia. The cause here is not quite certain. When he left the hospital, his sodiu m was only 145 and stable. It is uncertain if diuretics were reinstituted and he did not have access to water, resulting in such a high level. In any case, he has been followed by Renal. He has been getting normal saline, followed by D5W after. His sodium got down to about 181 this morning about 9 o'clock. I see nothing to support diabetes insipidus at this time or other intrinsic renal disease t hat might cause this problem and, as anticipated, we should correct this at no greater than 10 mEq/L in a 24-hour period. 2. Lower extremity edema. The etiology here is uncertain. He has had 2 lower extremity ultrasounds , one August 13, 2017, the other, 09/23/2017 looking for a clot, which was not seen. A CT angiogram showed the compression of his inferior vena cava, thought to be related to obstipation at the time, though he did not have abdominal compartment syndrome when that was done. In any case, an echo has b een talked about that is supposedly normal, save for diastolic dysfunction, but I think repeating ave t now would be useful so that we can have this for our records. 3. Mild rhabdomyolysis. This will easily improved with IV fluids. Will watch his CK. 4. Asthma. He is not requiring any treatment for this at this time, and I would not institute this therapy at this point. /[id number]/MODL
--- NOTE | 2017-10-06 15:56 | HOSPPROG ---
Hospitalist Progress Note Assessment/Plan: Assessment: 87-year-old male presenting with acute encephalopathy in the setting of acute severe hypernatremia, acute kidney injury Plan: 1. Acute encephalopathy. Prior to 5 days ago, he was conversant, sensicle, and oriented, then experienced acute change 2/2 hypernatremia -remains densely encephalopathic -will definitely require SNF for ADLs after this hospitalization if condition resolves 2. Hypernatremia. Acute, severe, resulting in above, secondary to poor free water intake over the past week, his serum sodium level was 145 ten days ago -patient NOT on diuretics as outpatient -appreciate ongoing renal consult -cont D5W at 100cc/hr, titration per renal -goal is 10mEq/day -patient is critically ill, high risk of -will allow oral free water intake after patient has MANAGER STAFFING eval 3. Acute kidney injury. Baseline creatinine less than 1, most likely secondary to hypovolemia in the setting of poor oral intake over the past week -continue monitor strict I&Os, daily weights, urine output 4. BPH. History of obstruction with chronic straight catheterizations, place Alan catheter to monitor strict I&Os, once patient able to tolerate oral intake , will reinitiate Flomax and Proscar 5. Chronic diastolic congestive heart failure. Patient does have chronic bilateral lower extremity edema, getting Echo -patient has not recently been on any diuretics -continue monitor volume status 6. Constipation. Chronic, abdominal x-ray demonstrating dilated loops of bowel , will initiate bowel regimen once patient able to tolerate oral intake 7. Severe protein calorie malnutrition. Evidenced by cachexia, weight loss, poor PO intake, get dietary consult and pre-alb level 8. Acute rhabdomyolysis. Cont IVF, cont monitor CPK Diet. NPO until MANAGER STAFFING eval Prophylaxis. High risk patient, heparin subcu Code. Do not resuscitate, discussed at great length with the patient's son Raúl who is the joint MD POA Disposition. Anticipated discharge uncertain, remains critically ill. 40 min of critical care time spent with the patient, at bedside, addressing the issues outlined above, specifically the acute encephalopathy and hypernatremia which rendered the patient critically ill with high risk of mortality. Subjective: patient remains encephalopathic, able to open eyes Objective: Vital Signs Temp Pulse Resp BP Pulse Ox 36.1 C 55 L 20 110/43 L 99 10/06/17 12:00 10/06/17 14:00 10/06/17 14:00 10/06/17 14:00 10/06/17 14:00 Microbiology 10/05/17 15:04 Respiratory Panel (PCR) - Final Nasal, Sinus - [place] Viral Transport No Organism Detected Laboratory Results 10/06/17 06:40 10/06/17 14:15 10/05/17 10/06/17 10/07/17 05:59 05:59 05:59 Intake Total 2815 Output Total 1050 200 Balance 1765 -200 - Physical Exam Constitutional: not in pain, chronically ill appearing, unkempt, cachectic, No uncomfortable Cardiovascular: regular rate and rhythym, no murmur, rub, or gallop, other ( loud abdominal bruit) Respiratory: reduced air movement (poor insp effort), No expiratory wheeze, No bronchial breath sounds, No respiratory distress Gastrointestinal: other (bounding bruit), No normoactive bowel sounds ( hypoactive bowel sounds), No guarding, No distension Neurologic: other (AAOx0, moving bilat UE) Psychiatric: encephalopathic, poor insight, poor judgement, poor memory, other ( follows some commands) ICD10 Worksheet Patient Problems: Problems Problem Status Onset RHF (right heart failure) Acute Bilateral lower extremity edema Acute Hypernatremia Acute Dehydration Acute Renal insufficiency Acute Leukocytosis Acute
--- NOTE | 2017-10-06 16:03 | ECHO ---
[email or web address] [address] Main: [phone] Fax: [email or web address] Echocardiogram Name: JAYASHREE COLON MR#: [id number] Study Date: 10/06/2017 Study Time: 02:23 PM Date of : 1930 Age: 87 year(s) Height: 165.1 cm (65 in.) Weight: 55.79 kg (123 lb.) BSA: 1.61 m2 Gender: Male Examination: Echo Indication: AMS, Dehydration, Murmur, Bradycardia with ectopy Image Quality: Contrast: Requested by: Carlos Wilcox BP: 110 mmHg/43 mmHg Heart Rate: Rhythm: Sinus bradycardia Indication: AMS, Dehydration, Murmur, Bradycardia with ectopy Procedure Staff Sales Project Manager: Jayden Allen Reading Physician: Ney Jeffery Requesting Provider: Conclusions: Normal size left ventricle. EF is 77 %. No regional wall motion abnormality. Diastolic LV function normal for age. The left atrium is moderately to severely dilated. There is moderate anterior mitral valve leaflet prolapse with moderate to severe eccentric mitral regurgitation.. Trivial aortic valve regurgitation. Mild tricuspid regurgitation is present. The pulmonary artery pressure is mildly increased. No pericardial effusion. Measurements: Chambers Valvular Assessment AV/MV Valvular Assessment TV/PV Normal Normal Normal Name Value Range Name Value Range Name Value Range Ao Kelsey (MM): 2.8 cm (2.2 cm-3.7 AV Vmax: 1.56 m/s (1 m/s-1.7 TR Vmax: 3.23 mm/s ( - ) cm) m/s) TR PGmax: 42 mmHg ( - ) IVSd (2D): 0.8 cm (0.6 cm-1.1 AV maxP mmHg ( - ) syst. PAP: 47 mmHg ( - ) cm) LVOT Vmax: 0.88 m/s (0.7 m/s-1.1 PV Vmax: 1.10 m/s (0.6 m/s-0.9 LVDd (2D): 4.8 cm (4.2 cm-5.9 m/s) m/s) cm) MV E Vmax: 1.45 m/s ( - ) PV PGmax: 5 mmHg ( - ) LVDs (2D): 2.6 cm (2.1 cm-4 MV A Vmax: 0.80 m/s ( - ) cm) MV E/A: 1.81 ( - ) LVPWd (2D): 0.9 cm (0.6 cm-1 cm) LVEF (2D): 77 (>=54 %) Continued Measurements: Patient: JAYASHREE COLON Study Date: 10/06/2017 Page 1 of 2 02:23 PM Chambers Valvular Assessment AV/MV Valvular Assessment TV/PV Name Value Name Value Name Value LADs Lon.9 cm MV E/E' Septal: 26.10 CVP (est.): 5 mmHg LA Area: 21.3 cm2 MV E/E' Lateral: 28.00 Findings: Left Ventricle: Normal size left ventricle. No LV hypertrophy. Global hypercontractility of the left ventricle. EF is 77 %. No regional wall motion abnormality. Diastolic LV function normal for age. Right Ventricle: Normal size right ventricle. Left Atrium: The left atrium is moderately to severely dilated. Right Atrium: The right atrium is moderately dilated. Mitral Valve: There is moderate anterior mitral valve leaflet prolapse with moderate to severe eccentric mitral regurgitation.. Aortic Valve: The aortic valve is tri-leaflet. Trivial aortic valve regurgitation. No aortic valve stenosis is present. Tricuspid Valve: Mild tricuspid regurgitation is present. The pulmonary artery pressure is mildly increased. Pulmonic Valve: The pulmonic valve is normal in appearance and function. Aorta: The aorta is normal. Pericardium: No pericardial effusion. (No Signature Object) Patient: JAYASHREE COLON Study Date: 10/06/2017 Page 2 of 2 02:23 PM [id number]
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
[2017-10-07] MEDS: HEPARIN 5,000 UNIT/0.5 ML SYR SC SCH ×3 (05:21→22:13)
[2017-10-07 05:40] LABS: PLATELET COUNT 93 10^3/uL (150-400)
[2017-10-07 06:15] LABS: CREATINE KINASE 1110 IU/L (0-224)
--- NOTE | 2017-10-07 07:52 | SOAPPROG ---
SOAP Progress Note Assessment/Plan: Assessment: HALIE better with IVF, baseline creat about 0.8, creat down to 1.1 today hypernatremia, initial free water deficit about 12 liters, total body water of about 34 liters, will replace slowly over 4-5 days, increase D5 to 150cc/hr hypermagnesemia, overall better alkalosis, contraction significant sacral wound, now on air bed Plan: change D5W to 150cc/hr replete free water deficit over 4-5 days (10 meq/day) follow magnesium follow lytes volume and renal function oral intake as able 10/06/17 08:18 10/06/17 08:28 10/07/17 07:46 Subjective: "I'm thirsty, can I have some water?" good to know he has ability to be thirsty, was concerned about defect of thirst center, but problem may not be neurological, but lack of access to water denies pain SOB nausea vomiting spirits good, no chest pain not hungry this AM much more talkative this morning slept well last night Objective: Vital Signs Temp Pulse Resp BP Pulse Ox 36.6 C 70 20 117/25 L 100 10/07/17 04:00 10/07/17 06:00 10/07/17 06:00 10/07/17 06:00 10/07/17 06:00 Laboratory Results 10/07/17 05:25 10/07/17 05:25 10/06/17 10/07/17 10/08/17 05:59 05:59 05:59 Intake Total 2815 2521 Output Total 1050 750 Balance 1765 1771 Physical Exam - Physical Exam General Appearance: alert, cachetic, other (chronically ill appearing) Neck: non-tender (occasional wheeze, no rh) Cardiac/Chest: regular rate, rhythm, edema, diastolic murmur, systolic murmur, No friction rub Abdomen: normal bowel sounds, non-tender, soft Skin: decubitus Extremities: pedal edema Neuro/Psych: alert, normal mood/affect, oriented x 3 ICD10 Worksheet Patient Problems: Problems Problem Status Onset Dehydration Acute Hypernatremia Acute Leukocytosis Acute Renal insufficiency Acute Bilateral lower extremity edema Acute RHF (right heart failure) Acute
[2017-10-07] MEDS: D5W 1,000 ML IV SCH ×2 (10:14→17:58)
--- NOTE | 2017-10-07 15:32 | HOSPPROG ---
Hospitalist Progress Note Assessment/Plan: 87-year-old male presenting with acute encephalopathy in the setting of acute severe hypernatremia, acute kidney injury # Acute encephalopathy- acute change 5 days ago he was conversant and oriented - has improved overnight mildly now more alert remains disoriented Oxygen saturations 96% on room air - PT/OT and supportive care - expect improvement as sodium corrects # Hypernatremia- Acute, severe his serum sodium level was 145 ->190 in 7 days after discharge - 179 this am Patient NOT on diuretics as outpatient -renal managing sodium correction -cont D5W at 100cc/hr, titration per renal -goal is 10mEq/day # decubitus ulceration - present on admission- wound care # Urine cx + Enterococcus - pt cannot describe sx but has chronic obstruction - empiric vancomycin until sensitivities available # Acute kidney injury- secondary to hypovolemia - creatinine 2.1 at admit - > 1.0 this am - cont IVF # 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 Evidenced by cachexia, weight loss, poor PO intake, get dietary consult and pre-alb level # Acute rhabdomyolysis- cont monitor CPK > 1000 this am - . Cont IVF, # Diet. NPO until DECATOR OPERATOR eval # Prophylaxis- heparin subcu # Code. Do not resuscitate, discussed at great length with the patient's son Raúl who is the joint MD POA # Disposition-remains critically ill. I have discussed the case with Dr. Wilcox - continue careful correction of sodium and supportive care Subjective: cold Objective: Vital Signs Temp Pulse Resp BP Pulse Ox 36.5 C 63 24 H 109/49 L 96 10/07/17 12:00 10/07/17 14:00 10/07/17 14:00 10/07/17 14:00 10/07/17 14:00 Laboratory Results 10/07/17 05:25 10/06/17 10/07/17 10/08/17 05:59 05:59 05:59 Intake Total 2815 2521 Output Total 1050 750 Balance 1765 1771 - Physical Exam Constitutional: cachectic Eyes: anicteric sclera Ears, Nose, Mouth, Throat: dry mucous membranes Cardiovascular: regular rate and rhythym Respiratory: no respiratory distress Gastrointestinal: normoactive bowel sounds Genitourinary: no bladder fullness Skin: warm Musculoskeletal: No asymmetric calves Neurologic: No AAOx3 Psychiatric: encephalopathic Lymph, Heme, Immunologic: no cervical LAD ICD10 Worksheet Patient Problems: Problems Problem Status Onset Dehydration Acute Hypernatremia Acute Leukocytosis Acute Renal insufficiency Acute Bilateral lower extremity edema Acute RHF (right heart failure) Acute
--- NOTE | 2017-10-07 15:49 | PDINTPN ---
Litigation Associate Progress Note Assessment/Plan: Assessment:/plan: 87 M with possible Parkinsons admitted 10/05/17 with severe hypernatremia (190) thought to be related to severe dehydration. He was hospitalized 09/23/17 for DINESH which was thought to be related to IVC compression resulting from severe constipation (x 2 weeks) and was treated with aggressive bowel regimen and diuretics. His constipation resolved and his diuretics were dc'd at the time of discharge when he was transferred to [facility]. During that hospital stay his mental status was intact and his sodium was normal at 145. He retuned on 10/05 with obtundation and HALIE with mild rhabdo and apparently was not eating or drinking. He was seen by nephrology who started appropriate FW replacement. * Hypernatremia- slowly, appropriately correcting with improvement in mental status, though he didnt know [facility] today. Defer to renal for further correction parameters * LE edema- his echo shows moderate to severe MR with moderate-severe LAE and RUFUS with pulmonary hypertension, which is the likely source of his edema. Diuretic therapy and anti-hypertensives would be adequate, as I dont think MVR is indicated at this time. Currently getting IVF for HALIE, so will have to watch this closely for modification. He also had two negative LE U/S to r/o DVT ( and 09/23/17). * Asthma- this is currently stable and no intervention is required * UTI? enterococcus on Ucx, but UA with only 3-5 WBC. Defer to hospitalist * HALIE- resolved Subjective: More alert, still unaware of location Objective: Vital Signs Temp Pulse Resp BP Pulse Ox 36.5 C 63 24 H 109/49 L 96 10/07/17 12:00 10/07/17 14:00 10/07/17 14:00 10/07/17 14:00 10/07/17 14:00 Laboratory Results 10/07/17 05:25 10/06/17 10/07/17 10/08/17 05:59 05:59 05:59 Intake Total 2815 2521 Output Total 1050 750 Balance 1765 1771 Physical Exam - Physical Exam General Appearance: alert, no apparent distress EENT: PERRL/EOMI Neck: supple Respiratory: lungs clear, normal breath sounds, No respiratory distress, No accessory muscle use Cardiac/Chest: regular rate, rhythm, edema Abdomen: non-tender, soft, No distended Skin: normal color, warm/dry, No cyanosis Lymphatic: no adenopathy Extremities: pedal edema Neuro/Psych: alert, normal mood/affect ICD10 Worksheet Patient Problems: Problems Problem Status Onset Dehydration Acute Hypernatremia Acute Leukocytosis Acute Renal insufficiency Acute Bilateral lower extremity edema Acute RHF (right heart failure) Acute
[2017-10-07] MEDS ORDERED: VANCOMYCIN HCL/NORMAL SALINE 250 ML IV ONE (16:00)
[2017-10-07] MEDS: POTASSIUM Cl (KCl) 10 MEQ in NS 100 ML IV SCH (22:47)
[2017-10-08] MEDS: POTASSIUM Cl (KCl) 10 MEQ in NS 100 ML IV SCH (00:01)
[2017-10-08 03:54] LABS: PLATELET COUNT 81 10^3/uL (150-400)
[2017-10-08] MEDS: HEPARIN 5,000 UNIT/0.5 ML SYR SC SCH ×2 (05:36→11:03)
[2017-10-08 06:12] LABS: CREATINE KINASE 663 IU/L (0-224)
[2017-10-08] MEDS ORDERED: PROTOCOL POTASSIUM 1 DOSE MISC PRN (06:28)
[2017-10-08] MEDS: D5W 1,000 ML IV SCH ×3 (07:47→20:43)
[2017-10-08] MEDS ORDERED: POTASSIUM Cl (KCl) 50 ML IV SCH (09:30)
[2017-10-08] MEDS: FINASTERIDE 5 MG TAB PO SCH ×2 (09:38→11:03)
[2017-10-08] MEDS: ALTEPLASE 2 MG VIAL IVP PRN (09:38)
[2017-10-08] MEDS: TAMSULOSIN HCL 0.4 MG CAP PO SCH ×2 (09:39→11:02)
[2017-10-08] MEDS: POTASSIUM Cl (KCl) 50 ML IV SCH ×6 (09:39→18:33)
[2017-10-08] MEDS ORDERED: POTASSIUM Cl (KCl) 10 MEQ in D5W 100 ML IV ONE (11:15)
--- NOTE | 2017-10-08 13:38 | PDINTPN ---
Driller'S Offsider Progress Note Assessment/Plan: Assessment:/plan: 87 M with possible Parkinsons admitted 10/05/17 with severe hypernatremia (190) thought to be related to severe dehydration. He was hospitalized 09/23/17 for DINESH which was thought to be related to IVC compression resulting from severe constipation (x 2 weeks) and was treated with aggressive bowel regimen and diuretics. His constipation resolved and his diuretics were dc'd at the time of discharge when he was transferred to [facility]. During that hospital stay his mental status was intact and his sodium was normal at 145. He retuned on 10/05 with obtundation and HALIE with mild rhabdo and apparently was not eating or drinking. He was seen by nephrology who started appropriate FW replacement. * Hypernatremia- slowly, appropriately correcting with improvement in mental status, though he didnt know BCH again. Defer to renal for further correction parameters. CXR showing mild vascular congestion, so may need caution with additional IVF * LE edema- his echo shows moderate to severe MR with moderate-severe LAE and RUFUS with pulmonary hypertension, which is the likely source of his edema. Diuretic therapy and anti-hypertensives would be adequate, as I dont think MVR is indicated at this time. Currently getting IVF for HALIE, so will have to watch this closely for modification. He also had two negative LE U/S to r/o DVT ( and 09/23/17). * Asthma- this is currently stable and no intervention is required * UTI? enterococcus on Ucx, but UA with only 3-5 WBC. Defer to hospitalist, but favor dc antibiotics * HALIE- resolved * Platelets- slowly falling. Would favor dc heparin, place SCDs and check HIT 10/08/17 13:31 Subjective: no events. More interactive but remains disoriented Objective: Vital Signs Temp Pulse Resp BP Pulse Ox 36.3 C 69 20 115/29 L 99 10/08/17 10:00 10/08/17 10:00 10/08/17 10:00 10/08/17 10:00 10/08/17 10:00 Laboratory Results 10/08/17 03:30 10/08/17 12:30 10/07/17 10/08/17 10/09/17 05:59 05:59 05:59 Intake Total 2521 4124 Output Total 750 650 Balance 1771 2894 Physical Exam - Physical Exam General Appearance: alert, no apparent distress, thin EENT: PERRL/EOMI Neck: supple Respiratory: lungs clear, normal breath sounds, No respiratory distress, No accessory muscle use, No rales, No rhonchi, No wheezing Cardiac/Chest: regular rate, rhythm, edema Abdomen: non-tender, soft, No distended Skin: normal color, warm/dry, No cyanosis Lymphatic: no adenopathy Extremities: pedal edema Neuro/Psych: alert, cognition abnormalities ICD10 Worksheet Patient Problems: Problems Problem Status Onset Dehydration Acute Hypernatremia Acute Leukocytosis Acute Renal insufficiency Acute Bilateral lower extremity edema Acute RHF (right heart failure) Acute
--- NOTE | 2017-10-08 14:02 | SOAPPROG ---
SOAP Progress Note Assessment/Plan: Assessment: The patient is an 87 y/o M who presented from SNF with HALIE and hypernatremia to 190mg/dL correcting appropriately with fluids. HALIE -back to baseline 0.9mg/dL today -has enterococcus on urine culture, would treat -monitor labs, avoid nephrotoxins Hypernatremia -on D5 at 150cc/hr, should not cause edema -would continue for TBW deficit of nearly 30L -goal correction 10meQ/day -oral intake Edema -h/o severe MR -will most likely need to start diuretics at some point once sodium is corrected Electrolytes -may replete gently -contraction alkalosis improving -hyperchloremia 2/2 to sodium and dehydration -continue to monitor Sacral wound -on air bed -management per primary team 10/08/17 14:09 Subjective: K+ low this am. Patient confused. Objective: Vital Signs Temp Pulse Resp BP Pulse Ox 36.3 C 65 20 117/26 L 94 10/08/17 12:00 10/08/17 12:00 10/08/17 12:00 10/08/17 12:00 10/08/17 12:00 Laboratory Results 10/08/17 03:30 10/08/17 12:30 10/07/17 10/08/17 10/09/17 05:59 05:59 05:59 Intake Total 2521 4124 Output Total 750 650 Balance 1771 3474 Physical Exam - Physical Exam General Appearance: WD/WN, alert, no apparent distress EENT: PERRL/EOMI, normal ENT inspection, pharynx normal Neck: non-tender, full range of motion, supple Respiratory: chest non-tender, lungs clear, normal breath sounds Cardiac/Chest: regular rate, rhythm, edema Abdomen: non-tender, soft, organomegaly Skin: normal color, warm/dry Extremities: normal range of motion, non-tender, pedal edema Neuro/Psych: alert, normal mood/affect, oriented x 3 ICD10 Worksheet Patient Problems: Problems Problem Status Onset Dehydration Acute Hypernatremia Acute Leukocytosis Acute Renal insufficiency Acute Bilateral lower extremity edema Acute RHF (right heart failure) Acute
--- NOTE | 2017-10-08 14:06 | HOSPPROG ---
Hospitalist Progress Note Assessment/Plan: # hyperNa - slow, appropriate correction per renal, still critically high # encephalopathy - possible d/t hyperNa; follow closely # constipation - better today # decub ulcer, POA # ?UTI - enterococcus and aerococcus in culture, but UA unremarkable; got 1 dose of vanc - dc abx and follow symptoms # HALIE, pre-renal, resolved - on D5W # BPH - not taking flomax and proscar; cont ortega with recent HALIE # mod MR # severe protein calorie malnutrition # DNR # dvt ppx - lovenox Subjective: still confused; no acute events Objective: Vital Signs Temp Pulse Resp BP Pulse Ox 36.3 C 65 20 117/26 L 94 10/08/17 12:00 10/08/17 12:00 10/08/17 12:00 10/08/17 12:00 10/08/17 12:00 Laboratory Results 10/08/17 03:30 10/08/17 12:30 10/07/17 10/08/17 10/09/17 05:59 05:59 05:59 Intake Total 2521 4124 Output Total 750 650 Balance 1771 3474 chart reviewed [facility] reviewed - Physical Exam Constitutional: chronically ill appearing Cardiovascular: regular rate and rhythym, systolic murmur, No irregularly irregular, No diastolic murmur Respiratory: no respiratory distress, no rales or rhonchi, clear to auscultation Gastrointestinal: normoactive bowel sounds, soft, non-tender abdomen ICD10 Worksheet Patient Problems: Problems Problem Status Onset RHF (right heart failure) Acute Bilateral lower extremity edema Acute Hypernatremia Acute Dehydration Acute Renal insufficiency Acute Leukocytosis Acute
--- NOTE | 2017-10-08 14:35 | WOCRNPDOC ---
[facility] - Skin Integrity Problem, Advanced Assess Sacrum Pressure Injury Dressing Type: Allevyn Life Dressing Description: Intact Exudate Amount: Minimal Exudate Color: Reddish/Yellow Exudate Characteristic(s): Serosanguinous Integumentary Issue Intervention: Visualized Under Dressing Katerin Wound Tissue: Erythema Katerin Wound Swelling: Mild Wound Bed Color: Red Wound Bed Constitution: Red/[place] - Non Granular Tissue Site Odor: None Site Measurement - Head-to-Toe Length X Width X Depth (cm): 5.9dfg2wxm4.2cm Pressure Injury Stage: Deep Tissue Injury (DTI) (evolving) Pressure Injury Present on Admit: Yes Skin Integrity Problem Comment: Large area of partial-thickness tissue loss noted across sacrum, w/ some purple discoloration along margins. Documented as a deep tissue injury upon admission, opening up/ evolving. Based upon previous assessment, this wound is now beginning to join w/ other pressure injury on buttock. Patient remains on Clinitron bed, w/ TAPS and turns. Continue w/ existing plan of care. Wound RN will re-assess on Thursday 10/12. Coccyx Pressure Injury Dressing Type: Allevyn Life Dressing Description: Intact Exudate Amount: Scant Exudate Color: Reddish/Yellow Exudate Characteristic(s): Serosanguinous Integumentary Issue Intervention: Visualized Under Dressing Katerin Wound Tissue: Erythema, Non-blanching Katerin Wound Swelling: Mild Wound Bed Color: Yellow Wound Bed Constitution: Adhered Slough Site Measurement - Head-to-Toe Length X Width X Depth (cm): 1.1cmx1.3cmx0.2cm Pressure Injury Stage: Unstageable Pressure Injury Present on Admit: Yes Skin Integrity Problem Comment: Wound on coccyx now slough-filled, unstageable. Extensive blanching and non-blanching erythema throughout katerin-wound tissues extending up onto sacrum. Will continue w/ Allevyn and wound gel as this and neighboring wounds evolve. Wound RN will reassess on 10/12. Left Buttock Pressure Injury Dressing Type: Allevyn Life Dressing Description: Intact Exudate Amount: Minimal Exudate Color: Reddish/Yellow Exudate Characteristic(s): Serosanguinous Integumentary Issue Intervention: Visualized Under Dressing Katerin Wound Tissue: Ecchymotic, Erythema, Non-blanching Katerin Wound Swelling: Mild Wound Bed Color: Red Wound Bed Constitution: Red/[place] - Non Granular Tissue Site Measurement - Head-to-Toe Length X Width X Depth (cm): 6.1ecf9hkn0.2cm Pressure Injury Stage: Stage 2 Pressure Injury Present on Admit: Yes Skin Integrity Problem Comment: Wound w/ partial-thickness tissue loss evident on L buttock, merging w/ larger, evolving sacral DTI. Areas of blanching and non -blanching tissue throughout periwound, 3 wounds total in this area. Will continue w/ aggressive off-loading, including Clinitron bed. Continue w/ wound care orders. Right Heel Dressing Type: Open to Air Exudate Amount: Scant Exudate Color: Brown Exudate Characteristic(s): Dried Katerin Wound Swelling: None Wound Bed Color: Black Wound Bed Constitution: Stable Eschar Site Measurement - Head-to-Toe Length X Width X Depth (cm): 0.4wdy6zpq6.1cm Pressure Injury Stage: Unstageable Pressure Injury Present on Admit: Yes Skin Integrity Problem Comment: Previous DTI on R heel now beginning to open, w / stable eshar throughout. Periwound skin intact. Initiated orders to paint w/ Betadine BID to keep tissue dry. Off-loading heel boots ongoing, and patient remains on Clinitron bed. Left Heel Dressing Type: Open to Air Exudate Amount: None Exudate Characteristic(s): None Katerin Wound Tissue: Intact Wound Bed Color: Black Site Measurement - Head-to-Toe Length X Width X Depth (cm): 2.5cmx1.7bwn3ox Pressure Injury Stage: Deep Tissue Injury (DTI) Pressure Injury Present on Admit: Yes Skin Integrity Problem Comment: DTI on L heel w/ intact skin overlying, suspect it will begin to open and reveal necrotic tissue underneath just as R heel has done. Will continue w/ off-loading heel boots and will have nursing paint this tissue w/ Betadine to keep tissue dry. Left Anterior Ankle Pressure Injury Dressing Type: Open to Air Exudate Amount: None Exudate Characteristic(s): None Katerin Wound Tissue: Intact Katerin Wound Swelling: None Wound Bed Color: Purple Site Measurement - Head-to-Toe Length X Width X Depth (cm): 0.5pyu8jja6dy Pressure Injury Stage: Deep Tissue Injury (DTI) Pressure Injury Present on Admit: Yes Skin Integrity Problem Comment: DTI on the front of patient's L ankle remains ecchymotic w/ intact skin. Wound RN will continue to monitor as wound evolves.
--- NOTE | 2017-10-08 15:53 | ASMTCMCOM ---
CM Note CM Note Notes: Patient is going to need diuretics but not until his sodium levels are corrected. Patient is still not eating well. CM will follow. Date Signed: 10/08/2017 03:52 PM Electronically Signed By:Karie Gay LCSW
[2017-10-08] MEDS ORDERED: VANCOMYCIN 750 MG in D5W 150 ML IV SCH (16:00)
[2017-10-08] MEDS: POTASSIUM Cl (KCl) 10 MEQ in D5W 50 ML IV SCH (18:14)
[2017-10-09] MEDS ORDERED: POTASSIUM Cl (KCl) 50 ML IV ONE ×4 (02:59→18:36)
[2017-10-09] MEDS: D5W 1,000 ML IV SCH ×3 (04:02→16:44)
[2017-10-09] MEDS: ENOXAPARIN 30 MG/0.3 ML SYR SC SCH (10:46)
[2017-10-09] MEDS: FINASTERIDE 5 MG TAB PO SCH (10:46)
[2017-10-09] MEDS: TAMSULOSIN HCL 0.4 MG CAP PO SCH (10:47)
[2017-10-09] MEDS ORDERED: BISACODYL 10 MG SUPP PR PRN (12:24)
[2017-10-09] MEDS ORDERED: LACTULOSE 20 GM/30 ML UDCUP PO PRN (12:24)
[2017-10-09] MEDS ORDERED: POLYETHYLENE GLYCOL 3350 17 GM PKT PO PRN (12:24)
[2017-10-09] MEDS ORDERED: MAGNESIUM HYDROXIDE 30 ML UDCUP PO PRN (12:24)
--- NOTE | 2017-10-09 12:24 | HOSPPROG ---
Hospitalist Progress Note Assessment/Plan: # hyperNa - slow, appropriate correction per renal, approaching normal range # encephalopathy - possible d/t hyperNa; slightly improved today # constipation - better today - start bowel program # decub ulcer, POA # ?UTI - enterococcus and aerococcus in culture, but UA unremarkable; got 1 dose of vanc - dc abx and follow symptoms # HALIE, pre-renal, resolved - on D5W # BPH - not taking flomax and proscar; cont ortega with recent HALIE # mod MR # severe protein calorie malnutrition - may need feeding tube soon # DNR # dvt ppx - lovenox Subjective: had a BM; sleeping, wakes easily Objective: Vital Signs Temp Pulse Resp BP Pulse Ox 36.8 C 60 16 143/46 H 96 10/09/17 10:00 10/09/17 10:00 10/09/17 10:00 10/09/17 10:00 10/09/17 10:00 Microbiology 10/05/17 17:40 Urine Culture - Final Unspecified Enterococcus Faecalis Aerococcus Urinae One [place] Type Laboratory Results 10/08/17 03:30 10/09/17 10:00 10/08/17 10/09/17 10/10/17 05:59 05:59 05:59 Intake Total 4124 4460 100 Output Total 650 850 Balance 3474 3610 100 high risk with ongoing confusion and hyperNa - Physical Exam Constitutional: no apparent distress, appears nourished Cardiovascular: regular rate and rhythym, no murmur, rub, or gallop Respiratory: no respiratory distress, no rales or rhonchi Gastrointestinal: soft, non-tender abdomen, No guarding, No rebound ICD10 Worksheet Patient Problems: Problems Problem Status Onset RHF (right heart failure) Acute Bilateral lower extremity edema Acute Hypernatremia Acute Dehydration Acute Renal insufficiency Acute Leukocytosis Acute
--- NOTE | 2017-10-09 16:07 | SOAPPROG ---
SOAP Progress Note Assessment/Plan: Assessment: 87 y/o M who presented from SNF with HALIE and hypernatremia to 190mg/ dL correcting appropriately with fluids. HALIE -back to baseline 0.8mg/dL Hypernatremia -on D5 at 100cc/hr, should not cause edema -would continue for TBW deficit of nearly 30L -goal correction 10meQ/day -oral intake still poor- discussing correction options to prevent recurrent (? DHT vs PEG vs hospice) -Na at 151 today- ok, continue current management Edema -h/o severe MR -will most likely need to start diuretics at some point once sodium is corrected - continue to hold for now Electrolytes -may replete gently prn -contraction alkalosis improving -hyperchloremia 2/2 to sodium and dehydration -continue to monitor Sacral wound -on air bed -management per primary team Malnutrition/failure to thrive Page Ceja MD [facility] [phone] 10/09/17 17:19 Subjective: Denies any pain, sob, n/v. RN reports he is not eating much, family considering feeding tube. Na 151. Objective: Vital Signs Temp Pulse Resp BP Pulse Ox 36.8 C 89 14 114/44 L 98 10/09/17 12:00 10/09/17 14:00 10/09/17 14:00 10/09/17 14:00 10/09/17 14:00 Microbiology 10/05/17 17:40 Urine Culture - Final Unspecified Enterococcus Faecalis Aerococcus Urinae One [place] Type Laboratory Results 10/08/17 03:30 10/09/17 14:34 10/08/17 10/09/17 10/10/17 05:59 05:59 05:59 Intake Total 4124 4460 100 Output Total 650 850 Balance 3474 3610 100 Physical Exam - Physical Exam General Appearance: no apparent distress, other (frail) EENT: other (MM dry) Neck: supple Respiratory: lungs clear Cardiac/Chest: regular rate, rhythm Abdomen: normal bowel sounds, non-tender, soft Skin: warm/dry Extremities: other (+ankle edema bilat) Neuro/Psych: alert, other (follows commands, answers basic questions ok) ICD10 Worksheet Patient Problems: Problems Problem Status Onset Dehydration Acute Hypernatremia Acute Leukocytosis Acute Renal insufficiency Acute Bilateral lower extremity edema Acute RHF (right heart failure) Acute
--- NOTE | 2017-10-09 17:33 | PDINTPN ---
Rolling Chair Pusher Progress Note Assessment/Plan: Assessment:/plan: 87 M with possible Parkinsons admitted 10/05/17 with severe hypernatremia (190) thought to be related to severe dehydration. He was hospitalized 09/23/17 for DINESH which was thought to be related to IVC compression resulting from severe constipation (x 2 weeks) and was treated with aggressive bowel regimen and diuretics. His constipation resolved and his diuretics were dc'd at the time of discharge when he was transferred to [facility]. During that hospital stay his mental status was intact and his sodium was normal at 145. He retuned on 10/05 with obtundation and HALIE with mild rhabdo and apparently was not eating or drinking. He was seen by nephrology who started appropriate FW replacement. * Hypernatremia- slowly, appropriately correcting with improvement in mental status, and recognized BCH today. Defer to renal for further correction parameters. CXR showing mild vascular congestion, so may need caution with additional IVF * LE edema- his echo shows moderate to severe MR with moderate-severe LAE and RUFUS with pulmonary hypertension, which is the likely source of his edema. Diuretic therapy and anti-hypertensives would be adequate, as I dont think MVR is indicated at this time. Currently getting IVF for HALIE, so will have to watch this closely for modification. He also had two negative LE U/S to r/o DVT ( and 09/23/17). * Asthma- this is currently stable and no intervention is required * UTI? enterococcus on Ucx, but UA with only 3-5 WBC. Defer to hospitalist, but favor dc antibiotics * HALIE- resolved * Platelets- slowly falling. Would favor dc heparin, place SCDs and check HIT. Recheck platelets in am 10/08/17 13:31 10/09/17 17:30 Subjective: improving Objective: Vital Signs Temp Pulse Resp BP Pulse Ox 36 C 62 20 133/106 H 99 10/09/17 16:00 10/09/17 16:00 10/09/17 16:00 10/09/17 16:00 10/09/17 16:00 Microbiology 10/05/17 17:40 Urine Culture - Final Unspecified Enterococcus Faecalis Aerococcus Urinae One [place] Type Laboratory Results 10/08/17 03:30 10/09/17 16:57 10/08/17 10/09/17 10/10/17 05:59 05:59 05:59 Intake Total 7830 4860 100 Output Total 440 778 Balance 2958 0471 100 Physical Exam - Physical Exam General Appearance: alert, no apparent distress, cachetic, thin EENT: PERRL/EOMI Neck: supple Respiratory: lungs clear, normal breath sounds, decreased breath sounds, No respiratory distress, No accessory muscle use Cardiac/Chest: regular rate, rhythm, No edema Abdomen: non-tender, soft, No distended Skin: normal color, warm/dry, No cyanosis Lymphatic: no adenopathy Extremities: No pedal edema Neuro/Psych: alert, normal mood/affect, No oriented x 3 ICD10 Worksheet Patient Problems: Problems Problem Status Onset Dehydration Acute Hypernatremia Acute Leukocytosis Acute Renal insufficiency Acute Bilateral lower extremity edema Acute RHF (right heart failure) Acute
[2017-10-09] MEDS: SENNOSIDES/DOCUSATE SODIUM TAB PO SCH (18:27)
[2017-10-10] MEDS ORDERED: POTASSIUM Cl (KCl) 50 ML IV ONE ×2 (01:32→05:18)
[2017-10-10 04:58] LABS: PLATELET COUNT 65 10^3/uL (150-400)
[2017-10-10] MEDS: ALTEPLASE 2 MG VIAL IVP PRN (07:42)
--- NOTE | 2017-10-10 08:29 | SOAPPROG ---
SOAP Progress Note Assessment/Plan: Assessment: 87 y/o M who presented from SNF with HALIE and hypernatremia to 190mg/ dL correcting appropriately with fluids. HALIE -back to baseline 0.7 mg/dL Hypernatremia -on D5 at 150cc/hr, will decrease rate to 100 cc/hr- should not cause edema -initial TBW deficit of nearly 30L -goal correction 10meQ/day -oral intake still poor- discussing bowling ball molder options to prevent recurrence (? DHT vs PEG vs hospice). Appears family wants to try tube feeds short term with DHT--If start tube feeds, can then d/c the D5W and add scheduled free water with the tube feeds (250 cc q4 hours and adjust based on labs) -Na at 147 today -will decrease lab frewquency to q6 hour for now and can even go longer if rest of lytes stable Edema -h/o severe MR -will most likely need to start diuretics at some point once sodium is corrected - continue to hold for now Electrolytes -may replete gently prn -contraction alkalosis improved -hyperchloremia 2/2 to sodium and dehydration -continue to monitor Sacral wound -on air bed -management per primary team Malnutrition/failure to thrive -discussing nutrition options- likely to start DHT with feeds/water -sacral wound limits ability to sit long periods but starting PT I discussed with Dr. Cordero and ICU team Page Ceja MD [facility] [phone] 10/10/17 08:53 Objective: Vital Signs Temp Pulse Resp BP Pulse Ox 35.8 C L 58 L 14 121/60 H 99 10/10/17 07:28 10/10/17 07:28 10/10/17 07:28 10/10/17 07:28 10/10/17 07:28 Microbiology 10/05/17 17:40 Urine Culture - Final Unspecified Enterococcus Faecalis Aerococcus Urinae One [place] Type Laboratory Results 10/10/17 04:35 10/10/17 08:00 10/09/17 10/10/17 10/11/17 05:59 05:59 05:59 Intake Total 4460 4010 Output Total 850 950 Balance 3610 3060 ICD10 Worksheet Patient Problems: Problems Problem Status Onset Dehydration Acute Hypernatremia Acute Leukocytosis Acute Renal insufficiency Acute Bilateral lower extremity edema Acute RHF (right heart failure) Acute
--- NOTE | 2017-10-10 11:11 | HOSPPROG ---
Hospitalist Progress Note Assessment/Plan: # hyperNa - slow, appropriate correction per renal, approaching normal range # encephalopathy - possibly d/t hyperNa; slightly improved today # nutrition - advanced to clears today; family ok with feeding tube - will elect to wait another day on tube as his appetite may improve # constipation - resolved # thrombocytopenia - hold lovenox; start SCDs - HIT ab sent # decub ulcer, POA # ?UTI - enterococcus and aerococcus in culture, but UA unremarkable; got 1 dose of vanc - currently off abx # HALIE, pre-renal, resolved - on D5W # BPH - not taking flomax and proscar - would like to dc ortega meghann # mod MR # severe protein calorie malnutrition - will try to advance diet; consider feeding tube # DNR # dvt ppx - SCDs, xarelto Subjective: still confused; having many BMs Objective: Vital Signs Temp Pulse Resp BP Pulse Ox 35.8 C L 58 L 14 121/60 H 99 10/10/17 07:28 10/10/17 07:28 10/10/17 07:28 10/10/17 07:28 10/10/17 07:28 Microbiology 10/05/17 17:40 Urine Culture - Final Unspecified Enterococcus Faecalis Aerococcus Urinae One [place] Type Laboratory Results 10/10/17 04:35 10/10/17 08:00 10/09/17 10/10/17 10/11/17 05:59 05:59 05:59 Intake Total 4460 4010 Output Total 850 950 Balance 3610 3060 high risk with ongoing confusion - Physical Exam Constitutional: other (confused; in bed) Cardiovascular: regular rate and rhythym, no murmur, rub, or gallop Respiratory: no respiratory distress, no rales or rhonchi Gastrointestinal: soft, non-tender abdomen, no palpable masses ICD10 Worksheet Patient Problems: Problems Problem Status Onset RHF (right heart failure) Acute Bilateral lower extremity edema Acute Hypernatremia Acute Dehydration Acute Renal insufficiency Acute Leukocytosis Acute
[2017-10-10] MEDS: FINASTERIDE 5 MG TAB PO SCH (11:20)
[2017-10-10] MEDS: SENNOSIDES/DOCUSATE SODIUM TAB PO SCH ×2 (11:21→13:02)
[2017-10-10] MEDS: TAMSULOSIN HCL 0.4 MG CAP PO SCH (11:21)
[2017-10-10] MEDS: ENOXAPARIN 30 MG/0.3 ML SYR SC SCH (13:02)
--- NOTE | 2017-10-10 15:27 | PDINTPN ---
Animal Nutrition Consultant Progress Note Assessment/Plan: Assessment:/plan: 87 M with possible Parkinsons admitted 10/05/17 with severe hypernatremia (190) thought to be related to severe dehydration. He was hospitalized 09/23/17 for DINESH which was thought to be related to IVC compression resulting from severe constipation (x 2 weeks) and was treated with aggressive bowel regimen and diuretics. His constipation resolved and his diuretics were dc'd at the time of discharge when he was transferred to [facility]. During that hospital stay his mental status was intact and his sodium was normal at 145. He retuned on 10/05 with obtundation and HALIE with mild rhabdo and apparently was not eating or drinking. He was seen by nephrology who started appropriate FW replacement. * Hypernatremia- Nearly normal. IVF reduced today * LE edema- his echo shows moderate to severe MR with moderate-severe LAE and RUFUS with pulmonary hypertension, which is the likely source of his edema. Diuretic therapy and anti-hypertensives would be adequate, as I dont think MVR is indicated at this time. Currently getting IVF for HALIE, so will have to watch this closely for modification. He also had two negative LE U/S to r/o DVT ( and 09/23/17). * Asthma- this is currently stable and no intervention is required * UTI? enterococcus on Ucx, but UA with only 3-5 WBC. Defer to hospitalist, but favor dc antibiotics * HALIE- resolved * Platelets- slowly falling. Would favor dc heparin, place SCDs and check HIT. still falling, workup pending Subjective: noadverse events. Large BM post manual disimpaction Objective: Vital Signs Temp Pulse Resp BP Pulse Ox 36.6 C 68 14 132/43 H 100 10/10/17 12:00 10/10/17 12:00 10/10/17 12:00 10/10/17 12:00 10/10/17 12:00 Laboratory Results 10/10/17 04:35 10/10/17 12:15 10/09/17 10/10/17 10/11/17 05:59 05:59 05:59 Intake Total 4460 4010 Output Total 850 950 Balance 3610 3060 Physical Exam - Physical Exam General Appearance: alert, no apparent distress, cachetic, thin EENT: PERRL/EOMI Neck: supple Respiratory: crackles (few basilar), No respiratory distress, No accessory muscle use, No wheezing Cardiac/Chest: regular rate, rhythm, edema Abdomen: non-tender, soft, No distended Skin: normal color, warm/dry Lymphatic: no adenopathy Extremities: pedal edema Neuro/Psych: alert, normal mood/affect, cognition abnormalities ICD10 Worksheet Patient Problems: Problems Problem Status Onset Dehydration Acute Hypernatremia Acute Leukocytosis Acute Renal insufficiency Acute Bilateral lower extremity edema Acute RHF (right heart failure) Acute
[2017-10-10] MEDS: D5W 1,000 ML IV SCH (17:23)
[2017-10-11 05:55] LABS: PLATELET COUNT 64 10^3/uL (150-400)
[2017-10-11] MEDS: D5W 1,000 ML IV SCH ×3 (05:58→23:03)
[2017-10-11] MEDS ORDERED: RIVAROXABAN 10 MG TAB PO SCH (09:00)
--- NOTE | 2017-10-11 09:57 | SOAPPROG ---
SOAP Progress Note Assessment/Plan: Assessment: 1. Hypernatremia This has corrected. He appropriately concentrates his urine. He is unable to adequately take in free water. Ongoing survival likely necessitates feeding tube placement with exogenous water administration. 2. Prognosis Elderly Patients that become severely hypernatremic have underlying pathology or debilitation that portends a very poor prognosis. I believe that even with a feeding tube, his 6month prognosis is poor. 3. Nutrition Will ask makeup sales consultant for initial recommendations relating to this. Plan: 10/11/17 09:53 Subjective: Responds, but disoriented Objective: Vital Signs Temp Pulse Resp BP Pulse Ox 36.5 C 57 L 12 113/43 L 98 10/11/17 07:48 10/11/17 07:48 10/11/17 07:48 10/11/17 07:48 10/11/17 07:48 Microbiology 10/05/17 14:55 Blood Culture - Final Blood 10/05/17 14:55 Blood Culture - Final Blood Laboratory Results 10/11/17 05:40 10/11/17 06:40 10/10/17 10/11/17 10/12/17 05:59 05:59 05:59 Intake Total 4010 3024 Output Total 950 800 Balance 3060 2224 Physical Exam - Physical Exam General Appearance: no apparent distress, cachetic Respiratory: lungs clear Cardiac/Chest: regular rate, rhythm Extremities: normal inspection (oriented to year, but not place) ICD10 Worksheet Patient Problems: Problems Problem Status Onset Dehydration Acute Hypernatremia Acute Leukocytosis Acute Renal insufficiency Acute Bilateral lower extremity edema Acute RHF (right heart failure) Acute
[2017-10-11] MEDS: FINASTERIDE 5 MG TAB PO SCH (10:43)
[2017-10-11] MEDS: SENNOSIDES/DOCUSATE SODIUM TAB PO SCH ×2 (10:43→22:19)
[2017-10-11] MEDS: TAMSULOSIN HCL 0.4 MG CAP PO SCH (10:43)
--- NOTE | 2017-10-11 12:37 | HOSPPROG ---
Hospitalist Progress Note Assessment/Plan: # hyperNa - slow, appropriate correction per renal, approaching normal range - almost back to normal - poor prognosis to have a Na of 190 - palliative care c/s today to help with decision making regarding feeding tube # encephalopathy - possibly d/t hyperNa; slightly improved today # severe protein calorie malnutrition - will try to advance diet; consider feeding tube # nutrition - advanced to clears today; - appreciate pall care assistance with decisions regarding feeding tube # constipation - resolved # thrombocytopenia - stable today hold lovenox; start SCDs - HIT ab sent # decub ulcer, POA # ?UTI - enterococcus and aerococcus in culture, but UA unremarkable; got 1 dose of vanc - currently off abx # HALIE, pre-renal, resolved - on D5W # BPH - not taking flomax and proscar - would like to dc ortega - maybe in next few days # mod MR # DNR # dvt ppx - SCDs - will hold pharm ppx with low plts Subjective: more conversant today; discussed palliative care with his son Objective: Vital Signs Temp Pulse Resp BP Pulse Ox 36.4 C 76 15 129/50 H 97 10/11/17 11:45 10/11/17 11:45 10/11/17 11:45 10/11/17 11:45 10/11/17 11:45 Microbiology 10/05/17 14:55 Blood Culture - Final Blood 10/05/17 14:55 Blood Culture - Final Blood Laboratory Results 10/11/17 05:40 10/11/17 06:40 10/10/17 10/11/17 10/12/17 05:59 05:59 05:59 Intake Total 4010 3024 Output Total 950 800 Balance [address] Montalvo and ICU team - Physical Exam Constitutional: chronically ill appearing Eyes: anicteric sclera Ears, Nose, Mouth, Throat: hearing normal Cardiovascular: No edema Respiratory: no respiratory distress Gastrointestinal: No distension Genitourinary: ortega in urethra Skin: warm Musculoskeletal: No joint effusion Neurologic: AAOx3 Psychiatric: not anxious ICD10 Worksheet Patient Problems: Problems Problem Status Onset RHF (right heart failure) Acute Bilateral lower extremity edema Acute Hypernatremia Acute Dehydration Acute Renal insufficiency Acute Leukocytosis Acute
--- NOTE | 2017-10-11 12:52 | PDINTPN ---
Training Designer Progress Note Assessment/Plan: Assessment: 87 M with possible Parkinsons admitted 10/05/17 with severe hypernatremia (190) thought to be related to severe dehydration. He was hospitalized 09/23/17 for DINESH which was thought to be related to IVC compression resulting from severe constipation (x 2 weeks) and was treated with aggressive bowel regimen and diuretics. His constipation resolved and his diuretics were dc'd at the time of discharge when he was transferred to [facility]. During that hospital stay his mental status was intact and his sodium was normal at 145. He retuned on 10/05 with obtundation and HALIE with mild rhabdo and apparently was not eating or drinking. He was seen by nephrology who started appropriate FW replacement. * Hypernatremia- Normalized. Still on D5W @ 100/hour * LE edema- Improved, now with chronic stasis changes. His echo shows moderate to severe MR with moderate-severe LAE and RUFUS with pulmonary hypertension, which is the likely source of his edema. Diuretic therapy and anti- hypertensives would be adequate, as I dont think MVR is indicated at this time. * Asthma- this is currently stable and no intervention is required * UTI? enterococcus on Ucx, but UA with only 3-5 WBC. Off antibiotics. Has Alan in * HALIE- resolved * Platelets- slowly falling. Off heparin, using SCDs. HIT Pending. * Sacral decubitus: Getting wound care, Clinitron bed. * Disposition: Prognosis with FTT, poor PO intake resulting in dehydration. Plan: Try to D/C Alan. Can use condom cath. If urine output down, will check bladder scan. Increase activity as tolerated. Palliative care consult. May be able to transfer to medical floor. 10/11/17 13:02 Subjective: Feels OK, poor appetite. Still quite weak. Objective: Vital Signs Temp Pulse Resp BP Pulse Ox 36.4 C 76 15 129/50 H 97 10/11/17 11:45 10/11/17 11:45 10/11/17 11:45 10/11/17 11:45 10/11/17 11:45 Microbiology 10/05/17 14:55 Blood Culture - Final Blood 10/05/17 14:55 Blood Culture - Final Blood Laboratory Results 10/11/17 05:40 10/10/17 10/11/17 10/12/17 05:59 05:59 05:59 Intake Total 4010 3028 Output Total 990 800 Balance 3060 2224 Physical Exam - Physical Exam General Appearance: alert, no apparent distress EENT: normal ENT inspection Neck: normal inspection Respiratory: lungs clear, normal breath sounds Cardiac/Chest: regular rate, rhythm, No edema Abdomen: normal bowel sounds, non-tender Skin: normal color, warm/dry Extremities: normal inspection Neuro/Psych: alert, normal mood/affect, motor weakness (generalized), other ( resting tremor), No oriented x 3 ICD10 Worksheet Patient Problems: Problems Problem Status Onset Dehydration Acute Hypernatremia Acute Leukocytosis Acute Renal insufficiency Acute Bilateral lower extremity edema Acute RHF (right heart failure) Acute
--- NOTE | 2017-10-11 16:38 | ASMTCMCOM ---
CM Note CM Note Notes: Patient malnourished, FTT, sacral decubitus, Dehydration. MD ordered a Palliative to help family with decision making re: feeding tube. was discharged to [facility] 10/10/17. Date Signed: 10/11/2017 04:37 PM Electronically Signed By:Isa Aldana LCSW
[2017-10-12 05:08] LABS: PLATELET COUNT 81 10^3/uL (150-400)
[2017-10-12] MEDS: TAMSULOSIN HCL 0.4 MG CAP PO SCH (07:52)
[2017-10-12] MEDS: FINASTERIDE 5 MG TAB PO SCH (07:52)
[2017-10-12] MEDS: SENNOSIDES/DOCUSATE SODIUM TAB PO SCH ×2 (07:53→21:38)
[2017-10-12] MEDS: D5W 1,000 ML IV SCH (07:59)
--- NOTE | 2017-10-12 12:16 | SOAPPROG ---
SOAP Progress Note Assessment/Plan: Assessment: 1. Hypernatremia Wean D5W. Determinations on feeding tube to be made. 2. Prognosis Elderly Patients that become severely hypernatremic have underlying pathology or debilitation that portends a very poor prognosis. I believe that even with a feeding tube, his 6month prognosis is poor. 3. Nutrition Hair Worker making recommendations 4. Urinary retention Straight cath for now. Subjective: Doing better. Objective: Vital Signs Temp Pulse Resp BP Pulse Ox 36.3 C 66 16 100/55 L 95 10/12/17 08:29 10/12/17 08:29 10/12/17 08:29 10/12/17 08:29 10/12/17 08:29 Microbiology 10/05/17 14:55 Blood Culture - Final Blood 10/05/17 14:55 Blood Culture - Final Blood Laboratory Results 10/12/17 05:00 10/12/17 05:00 10/11/17 10/12/17 10/13/17 05:59 05:59 05:59 Intake Total 3024 498 Output Total 800 250 Balance 2224 248 Physical Exam - Physical Exam General Appearance: no apparent distress, cachetic Respiratory: lungs clear Cardiac/Chest: regular rate, rhythm Extremities: pedal edema ICD10 Worksheet Patient Problems: Problems Problem Status Onset Dehydration Acute Hypernatremia Acute Leukocytosis Acute Renal insufficiency Acute Bilateral lower extremity edema Acute RHF (right heart failure) Acute
--- NOTE | 2017-10-12 17:06 | WOCRNPDOC ---
[facility] - Skin Integrity Problem, Advanced Assess Sacrum Pressure Injury Dressing Type: Allevyn Life Dressing Description: Intact Exudate Amount: Minimal Exudate Color: Reddish/Yellow Exudate Characteristic(s): Serosanguinous Integumentary Issue Intervention: Dressing Changed, Hydrogel Applied Audrey Wound Tissue: Blanching, Erythema Audrey Wound Swelling: Mild Wound Bed Color: Red Wound Bed Constitution: Red/[place] - Non Granular Tissue Site Measurement - Head-to-Toe Length X Width X Depth (cm): 7.2cmx10.1cmx0.1cm Pressure Injury Stage: Deep Tissue Injury (DTI) (evolving, now w/ appearance of stage 2) Pressure Injury Present on Admit: Yes (in H&P) Skin Integrity Problem Comment: Constellation of coccyx, sacral, and L buttock wounds are now merging into a larger, mostly sacral pressure injury w/ partial- thickness tissue loss. Underlying ecchymosis is resolving, wound bed comprised of smooth, non-granulating tissue. Periwound skin is intact, blanching erythema. Given patient's initial presentation upon admission, will proceed cautiously and keep aggressive pressure-relieving interventions in place. Continue w/ plan of care. Right Heel Pressure Injury Dressing Type: Open to Air Exudate Amount: None Exudate Characteristic(s): None Audrey Wound Tissue: Blanching Audrey Wound Swelling: None Wound Bed Color: Black Wound Bed Constitution: Stable Eschar Site Measurement - Head-to-Toe Length X Width X Depth (cm): 0.8cmx3.7cmx eschar Pressure Injury Stage: Unstageable Pressure Injury Present on Admit: Yes (in H&P) Skin Integrity Problem Comment: Stable eschar over R posterior heel,unchanged since previous assessment. No fluctuance in tissue, and no swelling or erythema evident. Will continue having nursing paint w/ Povidone-Iodine BID to keep necrotic tissue dry and intact. Off-loading heel boots in place, and patient remains on Clinitron bed. Left Heel Pressure Injury Dressing Type: Open to Air Exudate Amount: None Exudate Characteristic(s): None Audrey Wound Tissue: Intact Audrey Wound Swelling: None Wound Bed Color: Black Site Measurement - Head-to-Toe Length X Width X Depth (cm): 2.5cmx1.9cmx eschar Pressure Injury Stage: Unstageable Pressure Injury Present on Admit: Yes (in H&P) Skin Integrity Problem Comment: Stable eschar over L heel, consistent w/ unstageable pressure injury. No fluctunace palpated. Periwound skin is intact w / no swelling or eryrthema. Continue w/ plan of care, including painting tissue w/ Povidone-Iodine to keep it dry and stable. Left Anterior Ankle Pressure Injury Dressing Type: Open to Air Exudate Amount: None Exudate Characteristic(s): None Audrey Wound Tissue: Intact Audrey Wound Swelling: None Wound Bed Color: Purple Pressure Injury Stage: Deep Tissue Injury (DTI) Pressure Injury Present on Admit: Yes (in H&P) Skin Integrity Problem Comment: Ecchymosis across the front of patient's L ankle is unchanged since previous assessment. Overlying skin is intact, and there is no swelling or fluctuance in these tissues. No need for dressing or tx. Continue to keep pressure off of site, and use off-loading heel boots.
--- NOTE | 2017-10-12 17:41 | HOSPPROG ---
Hospitalist Progress Note Assessment/Plan: hyperNa - slow, appropriate correction per renal, approaching normal range - back to normal - poor prognosis to have a Na of 190 - palliative care meetin 10/13 encephalopathy - possibly d/t hyperNa; slightly improved today THIS IS MY FIRST MEETING W HIM he is alert but not particulalry interactive severe protein calorie malnutrition - will try to advance diet; consider feeding tube albumin 1.7 nutrition - advanced to clears today; - appreciate pall care assistance with decisions regarding feeding tube constipation - resolved # thrombocytopenia - stable today hold lovenox; start SCDs - HIT ab sent decub ulcer, POA ?UTI - enterococcus and aerococcus in culture, but UA unremarkable; got 1 dose of vanc - currently off abx HALIE, pre-renal, resolved - on D5W BPH - flomax and proscar intermittent straight cath mod MR DNR dvt ppx - SCDs - will hold pharm ppx with low plts Subjective: case d/w dr garrett. nursing notes red rash on trunk Objective: Vital Signs Temp Pulse Resp BP Pulse Ox 36.0 C 77 18 138/49 H 94 10/12/17 16:27 10/12/17 16:27 10/12/17 16:27 10/12/17 16:27 10/12/17 16:27 Laboratory Results 10/12/17 05:00 10/12/17 12:11 10/11/17 10/12/17 10/13/17 05:59 05:59 05:59 Intake Total 3024 498 Output Total 800 250 635 Balance 2228 811 -845 - Physical Exam Constitutional: no apparent distress, appears nourished Eyes: PERRL, anicteric sclera Ears, Nose, Mouth, Throat: moist mucous membranes, hearing normal Cardiovascular: regular rate and rhythym, no murmur, rub, or gallop Respiratory: no respiratory distress, no rales or rhonchi Gastrointestinal: normoactive bowel sounds, soft, non-tender abdomen Genitourinary: no bladder fullness Skin: warm, rash, other (blanching erythematous red rash on trunk and legs) Musculoskeletal: no muscle tenderness Neurologic: No AAOx3 ICD10 Worksheet Patient Problems: Problems Problem Status Onset Dehydration Acute Hypernatremia Acute Leukocytosis Acute Renal insufficiency Acute Bilateral lower extremity edema Acute RHF (right heart failure) Acute
[2017-10-13] MEDS: D5W 1,000 ML IV SCH ×2 (00:35→22:31)
[2017-10-13] MEDS: TAMSULOSIN HCL 0.4 MG CAP PO SCH (09:55)
[2017-10-13] MEDS: SENNOSIDES/DOCUSATE SODIUM TAB PO SCH ×2 (09:55→21:46)
[2017-10-13] MEDS: FINASTERIDE 5 MG TAB PO SCH (09:56)
--- NOTE | 2017-10-13 15:51 | HOSPPROG ---
Hospitalist Progress Note Assessment/Plan: plan of care: family interested in hospice care arangement all parties have not agreed but will proceed w hospice eval DNR hyperNa - slow, appropriate correction per renal, approaching normal range - back to normal - poor prognosis to have a Na of 190 - palliative care meetin 10/13 encephalopathy - possibly d/t hyperNa; slightly improved today THIS IS MY FIRST MEETING W HIM he is alert, moderately confused severe protein calorie malnutrition - family declines feeding tube albumin 1.7 nutrition - advanced to clears today; - no feeding tube constipation - resolved # thrombocytopenia - stable today hold lovenox; start SCDs - HIT ab sent decub ulcer, POA ?UTI - enterococcus and aerococcus in culture, but UA unremarkable; got 1 dose of vanc - currently off abx HALIE, pre-renal, resolved - on D5W BPH - flomax and proscar intermittent straight cath mod MR DNR dvt ppx - SCDs - will hold pharm ppx with low plts Subjective: 40 minutes spent n pall care discussion w maia, elementary school professional Objective: Vital Signs Temp Pulse Resp BP Pulse Ox 35.9 C L 67 13 122/43 H 97 10/13/17 12:45 10/13/17 12:45 10/13/17 12:45 10/13/17 12:45 10/13/17 12:45 Laboratory Results 10/12/17 05:00 10/13/17 04:40 10/12/17 10/13/17 10/14/17 05:59 05:59 05:59 Intake Total 498 1558 Output Total 250 635 Balance 248 923 - Physical Exam Constitutional: no apparent distress, appears nourished Eyes: PERRL, anicteric sclera Ears, Nose, Mouth, Throat: moist mucous membranes, hearing normal Cardiovascular: regular rate and rhythym, no murmur, rub, or gallop Respiratory: no respiratory distress, no rales or rhonchi Gastrointestinal: normoactive bowel sounds, soft, non-tender abdomen Genitourinary: No ortega in urethra Skin: warm, other (red rash better) Musculoskeletal: No full muscle strength Neurologic: No AAOx3 ICD10 Worksheet Patient Problems: Problems Problem Status Onset Dehydration Acute Hypernatremia Acute Leukocytosis Acute Renal insufficiency Acute Bilateral lower extremity edema Acute RHF (right heart failure) Acute
--- NOTE | 2017-10-13 17:13 | ASMTCMCOM ---
CM Note CM Note Notes: Palliative Care meeting today with patient's sons Raúl (MDPOA) and Willie, myself, Nuclear Reactor Engineerjacklyn Bennett, and Dr Fontenot. 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 The family expressed that they believed patient would not want any heroics, including a feeding tube, and that they'd like him to be comfortable and avoid further unnecessary hospitalizations. We talked about options, and the family seemed to lean towards going back to [facility] (where patient had been for 6 days prior to hospitalization), potentially with hospice. I spoke with Berhane at who said she might have a bed tomorrow. However, patient cannot come back with hospice unless he private pays for the room. I spoke with Raúl and explained options: 1) return to under Medicare and private pay for hospice 2) private pay [facility] and have hospice covered by Medicare 3) return to under Medicare with a MOST form and no hospice 3) return to and have assisted insurance help pay for cemetery workers supervisor and have hospice covered by Medicare Raúl was most interested in having patient return to under normal Medicare SNF benefits and private pay for hospice. I sent a referral to [facility] requesting an eval in the hospital tomorrow. Raúl will meet with his other siblings (they are four total) tonight and confirm the family's wishes for the patient. Date Signed: 10/13/2017 05:12 PM Electronically Signed By:Marlyn Duenas RN
[2017-10-14] MEDS: TAMSULOSIN HCL 0.4 MG CAP PO SCH (10:02)
[2017-10-14] MEDS: FINASTERIDE 5 MG TAB PO SCH (10:02)
[2017-10-14] MEDS: SENNOSIDES/DOCUSATE SODIUM TAB PO SCH ×2 (10:06→22:07)
--- NOTE | 2017-10-14 15:04 | ASMTCMCOM ---
CM Note CM Note Notes: Discussed DC plan with pt's son John. Pt is not a good candidate for rehab per RN and would be appropriate for joint terminal attack controller care bed at [facility] which would be self-pay at $371/day[address] [facility] will not have a male bed until Wednesday. Pt's Medicare will cover hospice with [facility]. CM to follow. Date Signed: 10/14/2017 03:04 PM Electronically Signed By:Deepthi Caba LCSW
--- NOTE | 2017-10-14 15:57 | HOSPPROG ---
Hospitalist Progress Note Assessment/Plan: bradycardia: likely represents chronotropic incompletence given current plan of care, will not change course no telemetry plan of care: family interested in hospice care arangement all parties have not agreed but will proceed w hospice eval DNR hyperNa - slow, appropriate correction per renal, approaching normal range - back to normal - poor prognosis to have a Na of 190 - palliative care meetin 10/13 encephalopathy - possibly d/t hyperNa; slightly improved today THIS IS MY FIRST MEETING W HIM he is alert, moderately confused severe protein calorie malnutrition - family declines feeding tube albumin 1.7 nutrition - advanced to clears today; - no feeding tube constipation - resolved # thrombocytopenia - stable today hold lovenox; start SCDs - HIT ab sent decub ulcer, POA ?UTI - enterococcus and aerococcus in culture, but UA unremarkable; got 1 dose of vanc - currently off abx HALIE, pre-renal, resolved - on D5W BPH - flomax and proscar intermittent straight cath mod MR DNR dvt ppx - SCDs - will hold pharm ppx with low plts Subjective: episodes of bradycardia to 30's. ortega placed. less responsive today Objective: Vital Signs Temp Pulse Resp BP Pulse Ox 35.4 C L 65 18 93/82 H 94 10/14/17 15:32 10/14/17 15:32 10/14/17 15:32 10/14/17 15:32 10/14/17 15:32 Laboratory Results 10/12/17 05:00 10/13/17 04:40 10/13/17 10/14/17 10/15/17 05:59 05:59 05:59 Intake Total 1558 862 Output Total 635 600 Balance 923 262 - Physical Exam Constitutional: no apparent distress, appears nourished Eyes: PERRL, anicteric sclera Ears, Nose, Mouth, Throat: moist mucous membranes, hearing normal Cardiovascular: regular rate and rhythym, no murmur, rub, or gallop, No bradycardia Respiratory: no respiratory distress, no rales or rhonchi Gastrointestinal: normoactive bowel sounds, soft, non-tender abdomen Genitourinary: ortega in urethra Skin: warm, normal color Musculoskeletal: no muscle tenderness, No full muscle strength Neurologic: No AAOx3 ICD10 Worksheet Patient Problems: Problems Problem Status Onset Dehydration Acute Hypernatremia Acute Leukocytosis Acute Renal insufficiency Acute Bilateral lower extremity edema Acute RHF (right heart failure) Acute
[2017-10-14] MEDS: D5W 1,000 ML IV SCH (19:54)
[2017-10-15] MEDS: SENNOSIDES/DOCUSATE SODIUM TAB PO SCH ×2 (08:17→21:55)
[2017-10-15] MEDS: TAMSULOSIN HCL 0.4 MG CAP PO SCH (08:17)
[2017-10-15] MEDS: FINASTERIDE 5 MG TAB PO SCH (09:05)
--- NOTE | 2017-10-15 15:02 | HOSPPROG ---
Hospitalist Progress Note Assessment/Plan: bradycardia: likely represents chronotropic incompletence given current plan of care, will not change course no telemetry plan of care: family interested in hospice care arangement all parties have not agreed but will proceed w hospice eval DNR hyperNa - slow, appropriate correction per renal, approaching normal range - back to normal - poor prognosis to have a Na of 190 - palliative care meeting 10/13 gave rise to above plan encephalopathy - possibly d/t hyperNa; slightly improved today THIS IS MY FIRST MEETING W HIM he is alert, moderately confused severe protein calorie malnutrition - family declines feeding tube albumin 1.7 nutrition - advanced to clears today; - no feeding tube constipation - resolved # thrombocytopenia - stable today hold lovenox; start SCDs - HIT ab sent decub ulcer, POA ?UTI - enterococcus and aerococcus in culture, but UA unremarkable; got 1 dose of vanc - currently off abx HALIE, pre-renal, resolved - on D5W BPH - flomax and proscar intermittent straight cath mod MR DNR dvt ppx - SCDs - will hold pharm ppx with low plts awaiting male bed nita funez Subjective: noo complaints. episodes of bradycardia Objective: Vital Signs Temp Pulse Resp BP Pulse Ox 35.2 C L 60 16 117/49 L 97 10/15/17 12:00 10/15/17 12:00 10/15/17 12:00 10/15/17 12:00 10/15/17 12:00 Laboratory Results 10/12/17 05:00 10/13/17 04:40 10/14/17 10/15/17 10/16/17 05:59 05:59 05:59 Intake Total 862 711 Output Total 600 240 Balance 262 471 - Physical Exam Constitutional: no apparent distress, appears nourished Eyes: PERRL, anicteric sclera Ears, Nose, Mouth, Throat: moist mucous membranes, hearing normal Cardiovascular: regular rate and rhythym, no murmur, rub, or gallop Respiratory: no respiratory distress, no rales or rhonchi Gastrointestinal: normoactive bowel sounds, soft, non-tender abdomen Genitourinary: ortega in urethra Skin: warm, other (less redness) Musculoskeletal: full muscle strength Neurologic: AAOx3 ICD10 Worksheet Patient Problems: Problems Problem Status Onset Dehydration Acute Hypernatremia Acute Leukocytosis Acute Renal insufficiency Acute Bilateral lower extremity edema Acute RHF (right heart failure) Acute
[2017-10-15] MEDS: D5W 1,000 ML IV SCH (15:51)
[2017-10-16] MEDS: FINASTERIDE 5 MG TAB PO SCH (09:32)
[2017-10-16] MEDS: SENNOSIDES/DOCUSATE SODIUM TAB PO SCH (09:32)
[2017-10-16] MEDS: TAMSULOSIN HCL 0.4 MG CAP PO SCH (09:33)
[2017-10-16] MEDS: D5W 1,000 ML IV SCH (13:30)
--- NOTE | 2017-10-16 14:57 | HOSPPROG ---
Hospitalist Progress Note Assessment/Plan: 87-year-old male presenting with acute encephalopathy in the setting of acute severe hypernatremia, acute kidney injury # Acute bradycardia- suspect represents chronotropic incompetence given current plan of care, will not change course - cont supportive care # thrombocytopenia - stable today hold lovenox; start SCDs HIT ab negative - holding enoxaparin as expect hospice placement soon # Acute encephalopathy- acute 2/2 acute illness - has improved mildly- less optimistic for more improvement Oxygen saturations 96% on room air - PT/OT and supportive care # Severe Hypernatremia- Acute, severe his serum sodium level 190 at presentation - normalized now 140 -renal managing sodium - cont hypotonic fluids # decubitus ulceration - present on admission- wound care # Enterococcus UTI- completed antibiotics # Acute kidney injury- secondary to hypovolemia - resolved # BPH- History of obstruction with chronic straight catheterizations - cont Flomax and Proscar # Moderate MR on ECHO # Constipation- Chronic, abdominal x-ray (personally reviewed and interpreted) demonstrating dilated loops of bowel - cont bowel regimen # Severe protein calorie malnutrition. Evidenced by cachexia, weight loss, poor PO intake, get dietary consult and pre-alb level # Acute rhabdomyolysis- resolved # Diet- tolerating PO minimal # Prophylaxis- SCD's # Code- DNR # Disposition-based on goals of care suspect likely hospice- CM consulted I have discussed the case with RN - will start a bear hugger today Subjective: denies pain Objective: Vital Signs Temp Pulse Resp BP Pulse Ox 35.4 C L 49 L 17 115/40 L 94 10/16/17 13:28 10/16/17 12:24 10/16/17 12:24 10/16/17 12:24 10/16/17 12:24 Laboratory Results 10/12/17 05:00 10/13/17 04:40 10/15/17 10/16/17 10/17/17 05:59 05:59 05:59 Intake Total 711 1220 Output Total 240 150 Balance 471 1070 - Physical Exam Constitutional: cachectic Eyes: anicteric sclera Ears, Nose, Mouth, Throat: dry mucous membranes Cardiovascular: regular rate and rhythym, bradycardia Respiratory: no respiratory distress Gastrointestinal: normoactive bowel sounds, distension Genitourinary: no bladder fullness Skin: warm Musculoskeletal: No asymmetric calves Neurologic: No AAOx3 Psychiatric: encephalopathic, poor memory Lymph, Heme, Immunologic: no cervical LAD ICD10 Worksheet Patient Problems: Problems Problem Status Onset Dehydration Acute Hypernatremia Acute Leukocytosis Acute Renal insufficiency Acute Bilateral lower extremity edema Acute RHF (right heart failure) Acute
[2017-10-16] MEDS ORDERED: NS 1,000 ML IV ONE (17:00)
[2017-10-17] MEDS: SENNOSIDES/DOCUSATE SODIUM TAB PO SCH ×3 (00:10→19:53)
[2017-10-17 08:10] VITALS: O2SAT 91
[2017-10-17] MEDS: FINASTERIDE 5 MG TAB PO SCH (10:21)
[2017-10-17] MEDS: TAMSULOSIN HCL 0.4 MG CAP PO SCH (10:21)
[2017-10-17] MEDS: D5W 1,000 ML IV SCH (10:21)
--- NOTE | 2017-10-17 13:29 | HOSPPROG ---
Hospitalist Progress Note Assessment/Plan: 87-year-old male presenting with acute encephalopathy in the setting of acute severe hypernatremia, acute kidney injury # Acute bradycardia- suspect represents chronotropic incompetence- HR 37-70 overnight given current plan of care, will not change course - cont supportive care # thrombocytopenia - stable today hold lovenox; start SCDs HIT ab negative - holding enoxaparin as expect hospice placement soon # Acute encephalopathy- acute 2/2 acute illness - has improved mildly- less optimistic for more improvement Oxygen saturations 91% on room air - PT/OT and supportive care # Severe Hypernatremia- Acute, severe his serum sodium level 190 at presentation - normalized 140 -renal managing sodium - cont hypotonic fluids - recheck in am # decubitus ulceration - present on admission- wound care # Enterococcus UTI- completed antibiotics # Acute kidney injury- secondary to hypovolemia - resolved # BPH- History of obstruction with chronic straight catheterizations - cont Flomax and Proscar # Moderate MR on ECHO # Constipation- Chronic, abdominal x-ray (personally reviewed and interpreted) demonstrating dilated loops of bowel - cont bowel regimen # Severe protein calorie malnutrition. Evidenced by cachexia, weight loss, poor PO intake, get dietary consult and pre-alb level # Acute rhabdomyolysis- resolved # Diet- tolerating PO minimal # Prophylaxis- SCD's # Code- DNR # Disposition-based on goals of care suspect likely hospice- CM consulted I have discussed the case with RN - continue supportive care - anticipate dc tomorrow to SNF with hospice Subjective: denies pain Objective: Vital Signs Temp Pulse Resp BP Pulse Ox 36.2 C 73 14 98/36 L 91 L 10/17/17 08:09 10/17/17 08:09 10/17/17 08:09 10/17/17 08:09 10/17/17 08:09 Laboratory Results 10/12/17 05:00 10/13/17 04:40 10/16/17 10/17/17 10/18/17 05:59 05:59 05:59 Intake Total 1220 1549 Output Total 150 150 Balance 1070 1399 - Physical Exam Constitutional: cachectic Eyes: anicteric sclera Ears, Nose, Mouth, Throat: dry mucous membranes Cardiovascular: regular rate and rhythym Respiratory: no respiratory distress Gastrointestinal: normoactive bowel sounds Genitourinary: no bladder fullness Skin: warm Musculoskeletal: No asymmetric calves Neurologic: No AAOx3 Psychiatric: encephalopathic Lymph, Heme, Immunologic: no cervical LAD ICD10 Worksheet Patient Problems: Problems Problem Status Onset Dehydration Acute Hypernatremia Acute Leukocytosis Acute Renal insufficiency Acute Bilateral lower extremity edema Acute RHF (right heart failure) Acute
--- NOTE | 2017-10-17 18:28 | ASMTCMCOM ---
CM Note CM Note Notes: Spoke with patient's son Raúl-cp# [phone]. He reports that there is an investigation going on into his father's care at [facility] ([place]). The [place] [employer], the [place] [facility] [place] [facility] are involved. Raúl and family are thinking that they might prefer patient going to [facility] where their mother is located (not sure if she is there for LTC or Rehab). I left a mess for [facility] to call us Wednesday. Raúl understands that they will be paying for room and boardDarío Bunn here today and will follow patient for Hospice where ever he goes. Date Signed: 10/17/2017 06:28 PM Electronically Signed By:Isa Aldana LCSW
[2017-10-17 20:21] VITALS: BP 123/70; PULSE 75; RESP 17; TEMP 93.3
[2017-10-17] MEDS ORDERED: FUROSEMIDE 20 MG TAB PO ONE (21:30)
--- NOTE | 2017-10-18 14:53 | GDS ---
[f rep st] DISCHARGE SUMMARY HISTORY OF PRESENT ILLNESS: An 87-year-old male who presented on 10/05/2017 with severe hypernatremi a thought secondary to dehydration in the outpatient setting. HOSPITAL COURSE: The patient was admitted to the intensive care unit for close electrolyte monitorin g. Was carefully corrected with hypotonic fluids over the course of the first week of his stay. The patient's sodium did normalize from 190 on presentation to 137 on the day of his . The patient remained encephalopathic, although improved from initial admission throughout his hospital stay. DISPOSITION: The patient on 10/17/2017 on the Medical floor with active hospice consulted an d anticipated disposition to SNF with hospice in the coming days. /[id number]/MODL
== END 2017-10-17 22:42 | disposition expired | DRG 640 ==
LOC: EDBD → EDUNIT# → F2N 17:22 → F1N 10-11 14:31
PROVIDERS: ADMIT Internal Medicine; ATTEND Internal Medicine
PROC: 02HV33Z Insertion of Infusion Device into Superior Vena Cava, Percutaneous Approach (ICD-10-PCS; principal; 2017-10-05)
DX: E87.0 Hyperosmolality and hypernatremia (principal); E43 Unspecified severe protein-calorie malnutrition; G93.49 Other encephalopathy; N17.9 Acute kidney failure, unspecified; I50.32 Chronic diastolic (congestive) heart failure; M62.82 Rhabdomyolysis; N39.0 Urinary tract infection, site not specified; E86.0 Dehydration; F03.90 Unspecified dementia, unspecified severity, without behavioral disturbance, psychotic disturbance, mood disturbance, and anxiety; N40.0 Benign prostatic hyperplasia without lower urinary tract symptoms; J45.909 Unspecified asthma, uncomplicated; L89.159 Pressure ulcer of sacral region, unspecified stage; L89.899 Pressure ulcer of other site, unspecified stage; K59.09 Other constipation; Z66 Do not resuscitate; R33.9 Retention of urine, unspecified; L89.329 Pressure ulcer of left buttock, unspecified stage; L89.619 Pressure ulcer of right heel, unspecified stage; L89.629 Pressure ulcer of left heel, unspecified stage; L89.529 Pressure ulcer of left ankle, unspecified stage; B95.2 Enterococcus as the cause of diseases classified elsewhere
CPT/HCPCS: 84134-90; 86022-90; 92526-GN; 92610-GN; 97110-GP; 97112-GP; 97163-GP; 97166-GO; 97530-GO; 97530-GP; 97535-GO; C1751; G8978-GP-CM; G8979-GP-CL; G8987-GO-CM; G8988-GO-CK; G8996-GN-CJ; G8997-GN-CI; J1644; J2997; J3370; J3480